=== PATIENT | male | born 1945 | race Asian ===

== ENCOUNTER → 2017-10-24 07:22 | Outpatient (CLI) | payer MEDICARE, MEDICAID, SELFPAY ==
[2017-10-24 09:16] LABS: BUN Creatinine Ratio 24.5 (6-22); Blood Urea Nitrogen 27 mg/dL (9-20); Calcium 9.6 mg/dL (8.4-10.2); Carbon Dioxide 29 mmol/L (22-32); Chloride 100 mmol/L (98-107); Cholesterol 127 mg/dL (140-199); Estimated Glomerular Filt Rate > 60.0 mL/min (>60); Glucose 122 mg/dL (80-110); HDL Cholesterol 39 mg/dL (40-60); HEMOLYSIS < 15 (0-50); LDL Cholesterol Calculated 63 mg/dL (<100); Potassium 4.3 mmol/L (3.4-5.1); Sodium 142 mmol/L (137-145); Triglycerides 125 mg/dL (35-150)
== END ==
PROVIDERS: Family Provider Family Medicine; PCP Family Medicine; Visit Provider Internal Medicine Cardiovascular Disease
DX: E78.5 Hyperlipidemia, unspecified (principal); I48.2 Chronic atrial fibrillation; I10 Essential (primary) hypertension
CPT/HCPCS: 36415; 80048; 80061

== ENCOUNTER → 2017-11-26 15:47 | Outpatient (CLI) | payer MEDICARE, MEDICAID, SELFPAY | PROVIDERS: Family Provider Family Medicine; PCP Family Medicine; Visit Provider Family Medicine | DX: N39.0 Urinary tract infection, site not specified (principal) | CPT/HCPCS: 87086 ==

== ENCOUNTER → 2017-12-07 13:17 | Outpatient (CLI) | payer MEDICARE, MEDICAID, SELFPAY ==
--- NOTE | 2017-12-07 13:20 | DI.US.S_ITS ---
PROCEDURE: US RENAL COMPLETE INDICATIONS: blood in urine TECHNIQUE: Real-time scanning was performed of the kidneys and bladder, with image documentation. COMPARISON: None. FINDINGS: Kidneys: Kidneys are normal in size. Right kidney measures 11.4 cm long; left kidney measures 12.5 cm long. Right renal cortical thickness is 1.9 cm; left renal cortical thickness is 1.9 cm. Renal cortical echotexture is normal. No hydronephrosis or nephrolithiasis. No suspicious solid mass lesions. Bladder: Pre-void bladder volume is 83 mL. Post-void residual is 36 mL. Pre-void images demonstrate no intraluminal masses or stones. On pre-void images, the right ureteral jets are noted with color Doppler interrogation. (Of note, ureteral jets may not be detectable in up to 25% of cases due to insufficient differences in specific gravity between ureteral and bladder urine). Miscellaneous: No free pelvic fluid. IMPRESSION: 1. No apparent nephrolithiasis or hydronephrosis. No mass lesions seen. 2. Nondistended urinary bladder shows no visible mass or stones. Postvoiding residual is recorded. Dictated by: Galo Mike M.D. on 12/07/2017 at 14:38 Approved by: Galo Mike M.D. on 12/07/2017 at 14:40
== END ==
PROVIDERS: PCP Family Medicine; Visit Provider Family Medicine
DX: R31.9 Hematuria, unspecified (principal)
CPT/HCPCS: 76770

== ENCOUNTER → 2017-12-13 07:05 | Outpatient (CLI) | payer MEDICARE, MEDICAID, SELFPAY ==
[2017-12-13 07:26] LABS: Appearance Urine UA CLEAR; Bilirubin Urine UA NEGATIVE (NEGATIVE); Color Urine UA YELLOW; Glucose Urine UA 2+ g/dL (Normal); Ketones Urine UA NEGATIVE (NEGATIVE); Leukocyte Esterase Urine UA NEGATIVE (NEGATIVE); Nitrite Urine UA Negative (Negative); Occult Blood Urine UA 2+ (Negative); Protein Urine UA 1+ (Negative); Urobilinogen Urine UA 0.2 E.U./dL (0.2)
[2017-12-13 07:47] LABS: Bacteria Urine Occasional (0-1); RBC Urine 1-5/HPF (0-5/HPF); WBC Urine 0-1/HPF (0-5/HPF)
[2017-12-13 07:48] LABS: Culture Indicated Urine Cult Not Indicated
== END ==
PROVIDERS: PCP Family Medicine; Visit Provider Family Medicine
DX: R31.9 Hematuria, unspecified (principal)
CPT/HCPCS: 81001

== ENCOUNTER → 2018-02-26 07:33 | Outpatient (CLI) | payer MEDICARE, MEDICAID, SELFPAY ==
[2018-02-26 08:43] LABS: Hemoglobin A1C% w Est Avg Glu 6.3 % (4.0-6.0)
[2018-02-26 08:45] LABS: Add Manual Diff / Slide Review NO; Basophils Percent Auto 0.7 % (0-2); Eosinophils Percent Auto 3.6 % (2-4); Hematocrit 49.9 % (41-53); Lymphocytes Percent Auto 23.5 % (25-40); Mean Corpuscular Hemoglobin 31.1 PG (26-34); Mean Corpuscular Volume 91.6 fL (80-100); Monocytes Percent Auto 6.7 % (3-14); Neutrophils Absolute Auto 4800 /uL (3000-5900); Neutrophils Percent Auto 65.5 % (50-75); Platelet Count 287 X10^3/uL (150-400); Red Blood Cell Count 5.45 X10^6/uL (4.5-5.9); Red Cell Distribution Width 13.2 % (11.6-14.8); White Blood Cell Count 7.3 X10^3/uL (4.5-11.0)
[2018-02-26 09:03] LABS: BUN Creatinine Ratio 26.4 (6-22); Blood Urea Nitrogen 29 mg/dL (9-20); Calcium 9.1 mg/dL (8.4-10.2); Carbon Dioxide 27 mmol/L (22-32); Chloride 103 mmol/L (98-107); Estimated Glomerular Filt Rate > 60.0 mL/min (>60); Glucose 136 mg/dL (80-110); HEMOLYSIS < 15 (0-50); Potassium 4.2 mmol/L (3.4-5.1); Sodium 142 mmol/L (137-145)
== END ==
PROVIDERS: PCP Family Medicine; Visit Provider Family Medicine
DX: I10 Essential (primary) hypertension (principal); D47.3 Essential (hemorrhagic) thrombocythemia; E11.59 Type 2 diabetes mellitus with other circulatory complications
CPT/HCPCS: 36415; 80048; 83036; 85025

== ENCOUNTER → 2018-03-06 11:45 | Outpatient (CLI) | payer MEDICARE, MEDICAID, SELFPAY ==
--- NOTE | 2018-03-06 | DI.CT.S_ITS ---
PROCEDURE: CT ABDOMEN PELVIS WO/W CON INDICATIONS: PAINLESS, MICRO HEMATURIA TECHNIQUE: Optional 5 mm thick noncontrast images acquired from the diaphragm to the symphysis pubis. After the administration of intravenous contrast, 5 mm thick images acquired from the diaphragm to the symphysis pubis after a 10-minute delay. 2 mm thick coronal and sagittal reformats were then performed of the kidneys and ureters. For radiation dose reduction, the following was used: automated exposure control, adjustment of mA and/or kV according to patient size. COMPARISON: [facility], , RENAL COMPLETE, 12/07/2017, 13:35. FINDINGS: Image quality: Excellent. Lung bases: Lung bases are clear of acute opacities. There is a 1.2 cm subpleural nodule in the left lung base (series 4, image 4). There is a 5 mm subpleural nodule in the right lung base (series 4, image 5). Heart size is enlarged. Atherosclerotic calcifications are noted in the visualized coronary vasculature. Urinary system: Both kidneys are normal in size, without hydronephrosis or nephrolithiasis on pre-contrast images. No perinephric fat stranding. There is normal bilateral renal enhancement. Renal calyces appear normal in morphology when filled with contrast. Opacified portions of both ureters demonstrate normal caliber. There are renal calyces and portions of the ureters join opacified bilaterally. No gross mass identified in the unopacified portions of the genitourinary collecting systems, however small urothelial based lesion cannot be completely excluded in the unopacified portions of the genitourinary collecting systems. Bladder wall thickness is normal. No calcified bladder stones. Other solid organs: Liver is normal in size and enhancement. Gallbladder is unremarkable. Biliary system is non dilated. Pancreas enhances normally. Spleen is normal in size and enhancement. No adrenal nodules. Peritoneum and bowel: Bowel loops demonstrate normal wall thickness and caliber. No free fluid or air. Nodes and vessels: No retroperitoneal or mesenteric adenopathy by size criteria. Aorta and inferior vena cava are normal in size. Abdominal wall: No ventral hernias. Pelvis: No pathologic free pelvic fluid. No inguinal hernias or adenopathy. Bones: No suspicious bony lesions. No vertebral body compression fractures. Spine degenerative disc disease and facet arthropathy. IMPRESSION: 1. No renal stone or hydronephrosis. 2. No renal mass. 3. No urothelial lesion identified in the well opacified portions of the genitourinary collecting systems. 4. No urinary bladder masses or stones. 5. Mild cardiomegaly. 6. Atherosclerosis including the visualized coronary vasculature. 7. 1.2 cm left lower lobe and 5 mm right middle lobe pulmonary nodules. Recommend dedicated CT scan of the chest for definitive characterization. Dictated by: Edelmira Mata MD, PhD on 03/06/2018 at 14:14 Approved by: Edelmira Mata MD, PhD on 03/06/2018 at 14:28
== END ==
PROVIDERS: PCP Family Medicine; Visit Provider Urology
DX: R31.9 Hematuria, unspecified (principal)
CPT/HCPCS: 74178; Q9967

== ENCOUNTER → 2018-04-01 07:41 | Outpatient (CLI) | payer MEDICARE, MEDICAID, SELFPAY ==
[2018-04-01 09:17] LABS: BUN Creatinine Ratio 26.4 (6-22); Blood Urea Nitrogen 29 mg/dL (9-20); Estimated Glomerular Filt Rate > 60.0 mL/min (>60)
--- NOTE | 2018-04-01 09:28 | DI.CT.S_ITS ---
PROCEDURE: CT CHEST WO CON INDICATIONS: pulmonary nodules TECHNIQUE: Noncontrast 5 mm thick sections acquired from the pulmonary apices to the posterior costophrenic angles. 7 mm thick coronal and sagittal MIP reformats were then acquired. For radiation dose reduction, the following was used: automated exposure control, adjustment of mA and/or kV according to patient size. COMPARISON: [facility], CT, CT ABDOMEN PELVIS WO/W CON, 03/06/2018, 12:19. FINDINGS: Image quality: Mildly degraded by patient motion during image acquisition. Lungs and pleura: No acute air space opacities. Mild blurring of the lungs bilaterally by patient motion during image acquisition. There is a single 1.2 cm previously identified nodule within the far anterolateral border of the superior segment left lower lobe, best seen on series 2 image 25 and series 4 image 41. The second subpleural nodule previously identified is within the lateral segment right middle lobe seen on series 2 image 34 and also coronal series 4 image 25. No additional pulmonary nodules are seen elsewhere. No pleural effusions or pneumothorax. Central and peripheral airways are patent and normal in caliber. Mediastinum: Heart size is normal. No pericardial effusion. No mediastinal adenopathy by size criteria. Thoracic aorta and central pulmonary arteries are normal in size. Esophagus is normal in caliber. No hiatal hernia. Bones and chest wall: No suspicious bony lesions. No vertebral body compression fractures. No axillary or supraclavicular adenopathy by size criteria. Thyroid gland is not well-seen by this noncontrast technique. Abdomen: Visualized upper abdominal solid organs and bowel loops appear normal in the absence of contrast. IMPRESSION: 2 previously identified pulmonary nodules seen initially 03/06/18 are again seen without global climate change analyst time and without additional nodules elsewhere. The largest nodule measures up to 1.2 cm. These are located in a subpleural position within the lateral border of the lateral segment right middle lobe and the far superior anterior border of the superior segment left lower lobe. The larger of the 2 nodules should be detectable by nuclear medicine PET CT scanning as a benign or presumably malignant mass and therefore followup nuclear medicine PET CT scanning appears warranted. Alternatively, if old comparison CT studies from elsewhere are available for review they should be obtained to establish chronicity of these findings. Dictated by: Alfred Damon M.D. on 04/01/2018 at 9:45 Approved by: Alfred Damon M.D. on 04/01/2018 at 9:53
== END ==
PROVIDERS: PCP Family Medicine; Visit Provider Family Medicine
DX: Z01.812 Encounter for preprocedural laboratory examination (principal); R91.8 Other nonspecific abnormal finding of lung field
CPT/HCPCS: 36415; 71250; 82565; 84520

== ENCOUNTER → 2018-08-29 09:17 | Outpatient (CLI) | payer MEDICARE, MEDICAID, SELFPAY ==
[2018-08-29 10:00] LABS: Add Manual Diff / Slide Review NO; Basophils Absolute Auto 0 /uL (0-100); Basophils Percent Auto 0.6 % (0-2); Eosinophils Absolute Auto 300 /uL (0-450); Eosinophils Percent Auto 3.8 % (2-4); Hematocrit 49.5 % (41-53); Lymphocytes Absolute Auto 1500 /uL (1100-4500); Mean Corpuscular HGB Conc 34.4 % (30-36); Mean Corpuscular Hemoglobin 31.2 PG (26-34); Mean Corpuscular Volume 90.8 fL (80-100); Monocytes Absolute Auto 500 /uL (0-900); Monocytes Percent Auto 6.8 % (3-14); Neutrophils Absolute Auto 4900 /uL (1500-7000); Neutrophils Percent Auto 67.8 % (50-75); Platelet Count 228 X10^3/uL (150-400); Red Blood Cell Count 5.45 X10^6/uL (4.5-5.9); Red Cell Distribution Width 13.5 % (11.6-14.8); White Blood Cell Count 7.3 X10^3/uL (4.5-11.0)
[2018-08-29 10:16] LABS: Alanine Aminotransferase 34 IU/L (21-72); Albumin 4.4 g/dL (3.5-5.0); Albumin Globulin Ratio 1.3 (1.0-2.8); Alkaline Phosphatase 99 U/L (38-126); Aspartate Aminotransferase 21 IU/L (17-59); Bilirubin Total 0.8 mg/dL (0.2-1.3); Blood Urea Nitrogen 31 mg/dL (9-20); Calcium 9.9 mg/dL (8.4-10.2); Carbon Dioxide 28 mmol/L (22-32); Chloride 105 mmol/L (98-107); Estimated Glomerular Filt Rate > 60.0 mL/min (>60); Globulin 3.3 g/dL (1.7-4.1); Glucose 164 mg/dL (80-110); HEMOLYSIS < 15 (0-50); Potassium 4.5 mmol/L (3.4-5.1); Sodium 141 mmol/L (137-145); Total Protein 7.7 g/dL (6.3-8.2)
[2018-08-29 10:18] LABS: B Type Natriuretic Peptide 150 (<100)
== END ==
PROVIDERS: PCP Family Medicine; Visit Provider Family Medicine
DX: E11.59 Type 2 diabetes mellitus with other circulatory complications (principal); E11.8 Type 2 diabetes mellitus with unspecified complications; I87.8 Other specified disorders of veins; I99.9 Unspecified disorder of circulatory system
CPT/HCPCS: 36415; 80053; 83036; 83880; 85025

== ENCOUNTER → 2018-08-30 11:08 | Outpatient (CLI) | payer MEDICARE, MEDICAID, SELFPAY | PROVIDERS: PCP Family Medicine; Visit Provider Family Medicine | DX: I87.312 Chronic venous hypertension (idiopathic) with ulcer of left lower extremity (principal); L97.821 Non-pressure chronic ulcer of other part of left lower leg limited to breakdown of skin; E11.622 Type 2 diabetes mellitus with other skin ulcer | CPT/HCPCS: 97597; 97598; 99203; 99213 ==

== ENCOUNTER → 2018-09-03 14:56 | Outpatient (CLI) | payer MEDICARE, MEDICAID, SELFPAY | PROVIDERS: PCP Family Medicine; Visit Provider Family Medicine | DX: I87.312 Chronic venous hypertension (idiopathic) with ulcer of left lower extremity (principal); L97.822 Non-pressure chronic ulcer of other part of left lower leg with fat layer exposed; E11.622 Type 2 diabetes mellitus with other skin ulcer | CPT/HCPCS: 97597; 97598 ==

== ENCOUNTER → 2018-09-10 14:31 | Outpatient (CLI) | payer MEDICARE, MEDICAID, SELFPAY | PROVIDERS: PCP Family Medicine; Visit Provider Family Medicine | DX: I87.312 Chronic venous hypertension (idiopathic) with ulcer of left lower extremity (principal); L97.822 Non-pressure chronic ulcer of other part of left lower leg with fat layer exposed; E11.622 Type 2 diabetes mellitus with other skin ulcer | CPT/HCPCS: 29581; 99213 ==

== ENCOUNTER → 2018-09-12 09:25 | Outpatient (CLI) | payer MEDICARE, MEDICAID, SELFPAY | PROVIDERS: PCP Family Medicine; Visit Provider Family Medicine | DX: I87.312 Chronic venous hypertension (idiopathic) with ulcer of left lower extremity (principal); L97.822 Non-pressure chronic ulcer of other part of left lower leg with fat layer exposed; E11.622 Type 2 diabetes mellitus with other skin ulcer | CPT/HCPCS: 29581 ==

== ENCOUNTER → 2018-09-17 13:41 | Outpatient (CLI) | payer MEDICARE, MEDICAID, SELFPAY | PROVIDERS: PCP Family Medicine; Visit Provider Family Medicine | DX: I87.312 Chronic venous hypertension (idiopathic) with ulcer of left lower extremity (principal); L97.822 Non-pressure chronic ulcer of other part of left lower leg with fat layer exposed; E11.622 Type 2 diabetes mellitus with other skin ulcer | CPT/HCPCS: 99213; 99214 ==

== ENCOUNTER → 2018-09-24 12:55 | Outpatient (CLI) | payer MEDICARE, MEDICAID, SELFPAY | PROVIDERS: PCP Family Medicine; Visit Provider Family Medicine | DX: L97.822 Non-pressure chronic ulcer of other part of left lower leg with fat layer exposed (principal); I87.312 Chronic venous hypertension (idiopathic) with ulcer of left lower extremity; E11.622 Type 2 diabetes mellitus with other skin ulcer | CPT/HCPCS: 97597; 99213 ==

== ENCOUNTER → 2018-10-01 13:45 | Outpatient (CLI) | payer MEDICARE, MEDICAID, SELFPAY | PROVIDERS: PCP Family Medicine; Visit Provider Family Medicine | DX: I87.312 Chronic venous hypertension (idiopathic) with ulcer of left lower extremity (principal); L97.821 Non-pressure chronic ulcer of other part of left lower leg limited to breakdown of skin; E11.622 Type 2 diabetes mellitus with other skin ulcer | CPT/HCPCS: 97597 ==

== ENCOUNTER → 2018-10-08 08:35 | Outpatient (CLI) | payer MEDICARE, MEDICAID, SELFPAY | PROVIDERS: PCP Family Medicine; Visit Provider Family Medicine | DX: E11.59 Type 2 diabetes mellitus with other circulatory complications (principal); R60.0 Localized edema | CPT/HCPCS: 99212 ==

== ENCOUNTER → 2018-12-16 09:58 | Outpatient (CLI) | payer MEDICARE, MEDICAID, SELFPAY ==
[2018-12-16 10:32] LABS: Hemoglobin A1C% w Est Avg Glu 7.3 % (4.0-6.0)
[2018-12-16 10:49] LABS: B Type Natriuretic Peptide 208 (<100)
[2018-12-16 11:03] LABS: Blood Urea Nitrogen 23 mg/dL (9-20); Carbon Dioxide 25 mmol/L (22-32); Chloride 107 mmol/L (98-107); Estimated Glomerular Filt Rate > 60.0 mL/min (>60); Glucose 106 mg/dL (80-110); HEMOLYSIS < 15 (0-50); Magnesium 2.2 mg/dL (1.6-2.3); Potassium 4.2 mmol/L (3.4-5.1); Sodium 142 mmol/L (137-145)
[2018-12-16 11:35] LABS: TSH w/ Reflex to FT4 2.68 uIU/mL (0.47-4.68)
== END ==
PROVIDERS: PCP Family Medicine; Visit Provider Family Medicine
DX: E11.59 Type 2 diabetes mellitus with other circulatory complications (principal)
CPT/HCPCS: 36415; 80048; 83036; 83735; 83880; 84443

== ENCOUNTER → 2019-02-14 07:02 | Outpatient (CLI) | payer MEDICARE, MEDICAID, SELFPAY ==
[2019-02-14 09:27] LABS: Alanine Aminotransferase 27 IU/L (21-72); Albumin 4.3 g/dL (3.5-5.0); Albumin Globulin Ratio 1.3 (1.0-2.8); Alkaline Phosphatase 114 U/L (38-126); Aspartate Aminotransferase 29 IU/L (17-59); Bilirubin Total 0.7 mg/dL (0.2-1.3); Blood Urea Nitrogen 27 mg/dL (9-20); Calcium 9.8 mg/dL (8.4-10.2); Carbon Dioxide 29 mmol/L (22-32); Chloride 99 mmol/L (98-107); Cholesterol 127 mg/dL (140-199); Estimated Glomerular Filt Rate > 60.0 mL/min (>60); Globulin 3.2 g/dL (1.7-4.1); Glucose 172 mg/dL (80-110); HDL Cholesterol 39 mg/dL (40-60); HEMOLYSIS 16 (0-50); LDL Cholesterol Calculated 57 mg/dL (<100); Potassium 4.8 mmol/L (3.4-5.1); Sodium 140 mmol/L (137-145); Total Protein 7.5 g/dL (6.3-8.2); Triglycerides 154 mg/dL (35-150)
== END ==
PROVIDERS: PCP Family Medicine; Visit Provider Internal Medicine Cardiovascular Disease
DX: E78.5 Hyperlipidemia, unspecified (principal)
CPT/HCPCS: 36415; 80053; 80061

== ENCOUNTER → 2019-03-17 10:21 | Outpatient (CLI) | payer MEDICARE, MEDICAID, SELFPAY ==
[2019-03-17 11:22] LABS: BUN Creatinine Ratio 18.2 (6-22); Blood Urea Nitrogen 20 mg/dL (9-20); Calcium 9.9 mg/dL (8.4-10.2); Carbon Dioxide 31 mmol/L (22-32); Chloride 104 mmol/L (98-107); Estimated Glomerular Filt Rate > 60.0 mL/min (>60); Glucose 135 mg/dL (80-110); HEMOLYSIS < 15 (0-50); Potassium 5.3 mmol/L (3.4-5.1); Sodium 141 mmol/L (137-145)
[2019-03-17 11:33] LABS: Hemoglobin A1C% w Est Avg Glu 7.9 % (4.0-6.0)
== END ==
PROVIDERS: PCP Family Medicine; Visit Provider Family Medicine
DX: E11.59 Type 2 diabetes mellitus with other circulatory complications (principal); I10 Essential (primary) hypertension
CPT/HCPCS: 36415; 80048; 83036

== ENCOUNTER → 2019-07-11 11:03 | Outpatient (CLI) | payer MEDICARE, MEDICAID, SELFPAY ==
[2019-07-11 12:53] LABS: Hemoglobin A1C% w Est Avg Glu 6.9 % (4.0-6.0)
[2019-07-11 13:37] LABS: BUN Creatinine Ratio 25.8 (6-22); Blood Urea Nitrogen 31 mg/dL (9-20); Calcium 10.2 mg/dL (8.4-10.2); Carbon Dioxide 26 mmol/L (22-32); Chloride 106 mmol/L (98-107); Estimated Glomerular Filt Rate 59.7 mL/min (>60); Glucose 82 mg/dL (80-110); HEMOLYSIS < 15 (0-50); Sodium 143 mmol/L (137-145)
== END ==
PROVIDERS: PCP Family Medicine; Referring Provider Family Medicine; Visit Provider Family Medicine
DX: E11.59 Type 2 diabetes mellitus with other circulatory complications (principal)
CPT/HCPCS: 36415; 80048; 83036

== ENCOUNTER → 2019-07-31 08:14 | Outpatient (CLI) | payer MEDICARE, MEDICAID, SELFPAY ==
--- NOTE | 2019-07-31 08:19 | DI.CT.S_ITS ---
PROCEDURE: CT CHEST WO CON INDICATIONS: pulmonary nodules TECHNIQUE: Noncontrast 5 mm thick sections acquired from the pulmonary apices to the posterior costophrenic angles. 1 mm lung window, 5 mm thick coronal and sagittal and 7 mm axial MIP reformats were then acquired. For radiation dose reduction, the following was used: automated exposure control, adjustment of mA and/or kV according to patient size. COMPARISON: [facility], CT, CT CHEST WO CON, 04/01/2018, 9:15. FINDINGS: Image quality: Patient motion artifact limits evaluation. Lungs and pleura: No acute air space opacities. There is peripheral interlobular septal thickening predominantly within the upper and midlungs which may be associated with low lung volumes or early fibrotic changes. An 8mm pulmonary nodule in the right lower lobe is unchanged from the study dated 04/01/18 (series 3/image 1:30). A 1.2 mm nodule within the left lower lobe is unchanged (series 3/image 1:30). 4 mm nodule within the right middle lobe is unchanged (series 3/image 145). There are scattered calcified granulomas. No pleural effusions or pneumothorax. Central and peripheral airways are patent and normal in caliber. Mediastinum: Heart size is normal. No pericardial effusion. There is a 1.7 cm pretracheal lymph node which is unchanged when compared with the CT from 04/01/18. The ascending thoracic aorta measures 4.7 cm in oblique axial diameter and is unchanged from the study dated 04/01/18. Scattered atheromatous calcifications are present throughout the thoracic aorta which is tortuous throughout its course. The central pulmonary arteries are normal in size. Esophagus is normal in caliber. No hiatal hernia. Bones and chest wall: No suspicious bony lesions. No vertebral body compression fractures. No axillary or supraclavicular adenopathy by size criteria. Thyroid gland is unremarkable. Abdomen: Visualized upper abdominal solid organs and bowel loops appear normal in the absence of contrast. IMPRESSION: 1. Pulmonary nodules as above, the largest of which measures 1.2 cm in diameter. These have demonstrated stability since 04/01/18. Follow up scan in March, recommended to ensure 24 months of stability. 2. Stable annuloaortic ectasia. Annual surveillance recommended. Fleischner Society criteria for SOLID lung nodule followup. Nodule size (mm)Low-risk patientHigh-risk patient?4No follow-up neededFollow-up at 12 mo; if no change, no further follow-up>1-3Apnure-eo CT at 12 mo; if no change, no further follow-up needed.Initial follow-up CT at 6-12 mo, then 18-24 mo if no change. >6-8Initial follow-up CT at 6-12 mo, then 18-24 mo if no change. Initial follow-up CT at 3-6 mo, then 9-12 mo and 24 mo if no change. >8Follow-up CT at 3, 9, 24 mo. Or PET and/or biopsy.Same as for low-risk pts. Fleischner Society criteria for SUB-SOLID lung nodule followup. Solitary pure ground-glass nodules5 mm or lessNo followup needed. >5 mm3 mo follow-up CT to confirm persistence. Then annual CT for 3 years. Part-solid nodules3 mo follow-up CT to confirm persistence. If persistent with solid component <5 mm, annual CT for at least 3 years. If solid component is 5 mm or more, biopsy or surgical resection. Consider PET-CT for lesions > 10 mm. Multiple sub-solid nodulesPure ground glass nodules [address] at 2 and 4 years. Pure ground glass nodules >5 mm without dominant lesion. [address] to confirm persistence, then annual followup CT for at least 3 years. Dominant nodule(s) with part-solid or solid component. [address] to confirm persistence. If persistent, consider biopsy or surgical resection, avinash if lesions have >5 mm solid component. Dictated by: Obdulia Hopper M.D. on 07/31/2019 at 16:28 Approved by: Obdulia Hopper M.D. on 07/31/2019 at 16:40
== END ==
PROVIDERS: PCP Family Medicine; Referring Provider Family Medicine; Visit Provider Family Medicine
DX: R91.8 Other nonspecific abnormal finding of lung field (principal); I35.8 Other nonrheumatic aortic valve disorders
CPT/HCPCS: 71250

== ENCOUNTER → 2020-02-10 09:49 | Outpatient (CLI) | payer MEDICARE, MEDICAID, SELFPAY ==
[2020-02-10 11:03] LABS: Hemoglobin A1C% w Est Avg Glu 7.4 % (4.0-6.0)
[2020-02-10 11:22] LABS: Blood Urea Nitrogen 25 mg/dL (9-20); Calcium 9.8 mg/dL (8.4-10.2); Carbon Dioxide 24 mmol/L (22-32); Chloride 104 mmol/L (98-107); Estimated Glomerular Filt Rate > 60.0 mL/min (>60); Glucose 202 mg/dL (80-110); HEMOLYSIS < 15 (0-50); Potassium 4.2 mmol/L (3.4-5.1); Sodium 138 mmol/L (137-145)
== END ==
PROVIDERS: PCP Family Medicine; Referring Provider Family Medicine; Visit Provider Family Medicine
DX: E11.59 Type 2 diabetes mellitus with other circulatory complications (principal); I10 Essential (primary) hypertension
CPT/HCPCS: 36415; 80048; 83036

== ENCOUNTER → 2020-02-25 09:07 | Outpatient (CLI) | payer MEDICARE, MEDICAID, SELFPAY ==
--- NOTE | 2020-02-25 09:09 | DI.RAD.S_ITS ---
PROCEDURE: XR HIP W PEL IF DONE RT 2V INDICATIONS: right hip pain and numbness s/p fall TECHNIQUE: AP pelvis with frogleg lateral view of the right hip. COMPARISON: [facility], CT, CT ABDOMEN PELVIS WO/W CON, 03/06/2018, 12:19. FINDINGS: Bones: No acute fractures or dislocations. Pelvic ring appears intact. No suspicious bony lesions. Soft tissues: The visualized bowel gas pattern is normal. No suspicious soft tissue calcifications. IMPRESSION: No acute osseous abnormality. Mild symmetric degenerative changes in the hips. Dictated by: Chicho Castanon M.D. on 02/25/2020 at 9:55 Approved by: Chicho Castanon M.D. on 02/25/2020 at 9:57
== END ==
PROVIDERS: PCP Family Medicine; Referring Provider Nurse Practitioner; Visit Provider Nurse Practitioner
DX: M25.551 Pain in right hip (principal); R20.0 Anesthesia of skin; Z91.81 History of falling
CPT/HCPCS: 73502

== ENCOUNTER → 2020-04-06 10:24 | Outpatient (CLI) | payer MEDICARE, MEDICAID, SELFPAY ==
--- NOTE | 2020-04-06 10:27 | DI.CT.S_ITS ---
PROCEDURE: CT CHEST WO CON INDICATIONS: nodules TECHNIQUE: Noncontrast 2.0-2.5 mm thick sections acquired from the pulmonary apices to the posterior costophrenic angles. 7 mm thick axial MIP and 5 mm coronal and sagittal reformats were then acquired. A low radiation dose technique was utilized. COMPARISON: [facility], CT, CT CHEST WO CON, 04/01/2018, 9:15. [facility], CT, CT CHEST WO CON, 07/31/2019, 8:14. FINDINGS: Image quality: Diagnostic, given the low radiation dose technique. Lungs and pleura: Nodule #1: 8 mm; RLL; series 3, image 151; ; solid; unchanged. Nodule #2: 10 x 13 mm; LLL; series 3, image 151; solid; unchanged. Nodule #3: 4 mm; RML; series 3, image 175; ; solid; unchanged. There are subpleural septal thickening and pulmonary fibrosis. No pleural effusion or pneumothorax. Mediastinum: Heart size is normal. No pericardial effusion. Mild coronary artery atherosclerosis. There is a 1.9 cm right paratracheal lymph node, unchanged in size. There is ascending aorta activity measuring 1.7 cm. The central pulmonary arteries are normal in size. Esophagus is normal in caliber. No hiatal hernia. Bones and chest wall: No suspicious bony lesions. No vertebral body compression fractures. No axillary or supraclavicular adenopathy by size criteria. Thyroid gland is normal . Abdomen: Visualized upper abdomen solid organs and bowel loops appear normal in the absence of contrast. IMPRESSION: 1. Stable lung nodules since 04/01/2018, suggesting benign etiology. 2. Stable mediastinal lymphadenopathy, most likely reactive. 3. Interstitial lung disease and pulmonary fibrosis. 4. Stable ascending aorta ectasia. Fleischner Society criteria for SOLID lung nodule followup. Nodule size (mm)Low-risk patientHigh-risk patient<6 (single or multiple)No routine followup.Optional CT at 12 months. 6-8 (single or multiple)CT at 6-12 months, then optional CT at 18-24 mo.CT at 6-12 months, then CT at 18-24 months. >8 (single)CT at 3 months, PET-CT, or biopsy. Same as for low-risk pts. >8 (multiple)CT at 3-6 months, then optional CT at 18-24 mo.CT at 3-6 months, then CT at 18-24 months. Fleischner Society criteria for SUB-SOLID lung nodule followup. Solitary pure ground-glass nodules<6 mm (ground glass or part solid)No followup needed. 6 mm or larger (ground glass)CT at 6-12 months to confirm persistence, then CT every 2 years until 5 years.6 mm or larger (part solid)CT at 3-6 months to confirm persistence, then annual CT until 5 years if unchanged and solid component remains <6 mm. Multiple sub-solid nodules<6 mmCT at 3-6 months, then CT consider at 2 & 4 years for high risk patients. [address] at 3-6 months. Subsequent management based on most suspicious lesions. Recommendations do not apply to lung cancer screening, patients with immunosuppression, or patients with known primary cancer. Dictated by: Isaias Browne M.D. on 04/06/2020 at 11:53 Approved by: Isaias Browne M.D. on 04/06/2020 at 14:38
== END ==
PROVIDERS: PCP Family Medicine; Referring Provider Family Medicine; Visit Provider Family Medicine
DX: R91.8 Other nonspecific abnormal finding of lung field (principal); R59.0 Localized enlarged lymph nodes; J84.9 Interstitial pulmonary disease, unspecified; J84.10 Pulmonary fibrosis, unspecified; I77.819 Aortic ectasia, unspecified site
CPT/HCPCS: 71250

== ENCOUNTER → 2020-05-06 07:22 | Outpatient (CLI) | payer MEDICARE, MEDICAID, SELFPAY ==
[2020-05-06 08:00] LABS: Add Manual Diff / Slide Review NO; Basophils Absolute Auto 0 /uL (0-100); Basophils Percent Auto 0.7 % (0-2); Eosinophils Absolute Auto 200 /uL (0-450); Eosinophils Percent Auto 3.3 % (2-4); Hematocrit 49.9 % (41-53); Hemoglobin 16.7 g/dL (13.5-17.5); Lymphocytes Absolute Auto 1700 /uL (1100-4500); Lymphocytes Percent Auto 25.6 % (25-40); Mean Corpuscular HGB Conc 33.4 % (30-36); Mean Corpuscular Hemoglobin 30.2 PG (26-34); Mean Corpuscular Volume 90.4 fL (80-100); Monocytes Absolute Auto 400 /uL (0-900); Monocytes Percent Auto 6.7 % (3-14); Neutrophils Absolute Auto 4200 /uL (1500-7000); Neutrophils Percent Auto 63.7 % (50-75); Platelet Count 229 X10^3/uL (150-400); Red Blood Cell Count 5.52 X10^6/uL (4.5-5.9); White Blood Cell Count 6.5 X10^3/uL (4.5-11.0)
[2020-05-06 08:03] LABS: Hemoglobin A1C% w Est Avg Glu 7.1 % (4.0-6.0)
[2020-05-06 08:13] LABS: Alanine Aminotransferase 19 IU/L (<50); Albumin 4.1 g/dL (3.5-5.0); Albumin Globulin Ratio 1.3 (1.0-2.8); Alkaline Phosphatase 82 U/L (38-126); Aspartate Aminotransferase 23 IU/L (17-59); BUN Creatinine Ratio 26.8 (6-22); Bilirubin Total 0.8 mg/dL (0.2-1.3); Blood Urea Nitrogen 26 mg/dL (9-20); Calcium 9.2 mg/dL (8.4-10.2); Carbon Dioxide 30 mmol/L (22-32); Chloride 105 mmol/L (98-107); Cholesterol 135 mg/dL (140-199); Estimated Glomerular Filt Rate > 60.0 mL/min (>60); Globulin 3.1 g/dL (1.7-4.1); Glucose 157 mg/dL (80-110); HDL Cholesterol 48 mg/dL (40-60); HEMOLYSIS < 15 (0-50); LDL Cholesterol Calculated 60 mg/dL (<100); Potassium 4.3 mmol/L (3.4-5.1); Sodium 140 mmol/L (137-145); Total Protein 7.2 g/dL (6.3-8.2); Triglycerides 137 mg/dL (35-150)
[2020-05-06 08:54] LABS: Creatinine Urine Random 64.7 mg/dL
[2020-05-06 09:37] LABS: Microalbumi Creatinin Ratio Ur 7001.5 ug/mg CR (<30)
== END ==
PROVIDERS: PCP Family Medicine; Referring Provider Family Medicine; Visit Provider Family Medicine
DX: E11.59 Type 2 diabetes mellitus with other circulatory complications (principal); E11.8 Type 2 diabetes mellitus with unspecified complications; I10 Essential (primary) hypertension; I48.20 Chronic atrial fibrillation, unspecified; R91.8 Other nonspecific abnormal finding of lung field; Z79.01 Long term (current) use of anticoagulants
CPT/HCPCS: 36415; 80053; 80061; 82043; 82570; 83036; 85025

== ENCOUNTER → 2020-05-10 11:21 | Outpatient (CLI) | payer MEDICARE, MEDICAID, SELFPAY ==
[2020-05-10 15:16] LABS: Microalbumi Creatinin Ratio Ur 5811.5 ug/mg CR (<30)
== END ==
PROVIDERS: PCP Family Medicine; Visit Provider Family Medicine
DX: E11.59 Type 2 diabetes mellitus with other circulatory complications (principal)
CPT/HCPCS: 82043; 82570

== ENCOUNTER → 2020-11-17 09:32 | Outpatient (CLI) | payer MEDICARE, MEDICAID, SELFPAY | PROVIDERS: PCP Family Medicine; Referring Provider Family Medicine; Visit Provider Family Medicine | DX: E11.59 Type 2 diabetes mellitus with other circulatory complications (principal); I10 Essential (primary) hypertension; Z79.01 Long term (current) use of anticoagulants | CPT/HCPCS: 36415 ==

== ENCOUNTER → 2020-11-18 10:03 | Outpatient (CLI) | payer MEDICARE, MEDICAID, SELFPAY ==
[2020-11-18 11:36] LABS: Add Manual Diff / Slide Review NO; Basophils Absolute Auto 100 /uL (0-100); Basophils Percent Auto 0.7 % (0-2); Eosinophils Absolute Auto 500 /uL (0-450); Eosinophils Percent Auto 6.6 % (2-4); Hematocrit 50.3 % (41-53); Hemoglobin 16.5 g/dL (13.5-17.5); Lymphocytes Absolute Auto 2000 /uL (1100-4500); Lymphocytes Percent Auto 25.3 % (25-40); Mean Corpuscular HGB Conc 32.8 % (30-36); Mean Corpuscular Hemoglobin 29.4 PG (26-34); Mean Corpuscular Volume 89.6 fL (80-100); Monocytes Absolute Auto 500 /uL (0-900); Monocytes Percent Auto 6.2 % (3-14); Neutrophils Absolute Auto 4700 /uL (1500-7000); Neutrophils Percent Auto 61.2 % (50-75); Platelet Count 247 X10^3/uL (150-400); Red Blood Cell Count 5.61 X10^6/uL (4.5-5.9); Red Cell Distribution Width 15.2 % (11.6-14.8); White Blood Cell Count 7.7 X10^3/uL (4.5-11.0)
[2020-11-18 11:45] LABS: Hemoglobin A1C% w Est Avg Glu 7.3 % (4.0-6.0)
[2020-11-18 11:51] LABS: BUN Creatinine Ratio 25.7 (6-22); Blood Urea Nitrogen 26 mg/dL (9-20); Calcium 9.7 mg/dL (8.4-10.2); Carbon Dioxide 29 mmol/L (22-32); Chloride 107 mmol/L (98-107); Estimated Glomerular Filt Rate > 60.0 mL/min (>60); Glucose 94 mg/dL (80-110); HEMOLYSIS 32 (0-50); Sodium 141 mmol/L (137-145)
== END ==
PROVIDERS: PCP Family Medicine; Referring Provider Family Medicine; Visit Provider Family Medicine
DX: I10 Essential (primary) hypertension (principal); E11.22 Type 2 diabetes mellitus with diabetic chronic kidney disease
CPT/HCPCS: 36415; 80048; 83036; 85025

== ENCOUNTER → 2021-04-01 07:12 | Outpatient (CLI) | payer MEDICARE, MEDICAID, SELFPAY ==
[2021-04-01 08:21] LABS: Add Manual Diff / Slide Review NO; Basophils Absolute Auto 100 /uL (0-100); Basophils Percent Auto 0.8 % (0-2); Eosinophils Absolute Auto 300 /uL (0-450); Eosinophils Percent Auto 4.6 % (2-4); Hematocrit 51.9 % (41-53); Hemoglobin 17.7 g/dL (13.5-17.5); Lymphocytes Absolute Auto 2200 /uL (1100-4500); Lymphocytes Percent Auto 30.3 % (25-40); Mean Corpuscular Hemoglobin 30.7 PG (26-34); Mean Corpuscular Volume 90.1 fL (80-100); Monocytes Absolute Auto 500 /uL (0-900); Monocytes Percent Auto 6.2 % (3-14); Neutrophils Absolute Auto 4300 /uL (1500-7000); Neutrophils Percent Auto 58.1 % (50-75); Platelet Count 260 X10^3/uL (150-400); Red Blood Cell Count 5.76 X10^6/uL (4.5-5.9); Red Cell Distribution Width 14.3 % (11.6-14.8); White Blood Cell Count 7.4 X10^3/uL (4.5-11.0)
[2021-04-01 08:41] LABS: Albumin 3.8 g/dL (3.5-5.0); Albumin Globulin Ratio 1.3 (1.0-2.8); Alkaline Phosphatase 104 U/L (38-126); Aspartate Aminotransferase 25 IU/L (17-59); BUN Creatinine Ratio 12.6 (6-22); Bilirubin Total 0.8 mg/dL (0.2-1.3); Blood Urea Nitrogen 15 mg/dL (9-20); Calcium 9.2 mg/dL (8.4-10.2); Carbon Dioxide 27 mmol/L (22-32); Chloride 105 mmol/L (98-107); Cholesterol 196 mg/dL (140-199); Estimated Glomerular Filt Rate 59.9 mL/min (>60); Glucose 157 mg/dL (80-110); HDL Cholesterol 53 mg/dL (40-60); LDL Cholesterol Calculated 111 mg/dL (<100); Sodium 140 mmol/L (137-145); Total Protein 6.8 g/dL (6.3-8.2); Triglycerides 160 mg/dL (35-150)
[2021-04-01 08:43] LABS: Alanine Aminotransferase 19 IU/L (<50); HEMOLYSIS < 15 (0-50); Potassium 4.1 mmol/L (3.4-5.1)
[2021-04-01 08:50] LABS: Hemoglobin A1C% w Est Avg Glu 7.5 % (4.0-6.0)
[2021-04-01 10:46] LABS: Appearance Urine UA CLEAR; Bilirubin Urine UA NEGATIVE (NEGATIVE); Color Urine UA YELLOW; Glucose Urine UA 3+ g/dL (Negative); Ketones Urine UA NEGATIVE (NEGATIVE); Leukocyte Esterase Urine UA NEGATIVE (NEGATIVE); Nitrite Urine UA NEGATIVE (Negative); Occult Blood Urine UA 2+ (Negative); Protein Urine UA 3+ (Negative); Urobilinogen Urine UA 0.2 E.U./dL (0.2)
[2021-04-01 11:02] LABS: Squamous Epithelial Cell Urine 0-1 /HPF (0-5/HPF); WBC Urine 0-1/HPF (0-5/HPF)
[2021-04-01 11:03] LABS: Granular Casts Urine 1-5/LPF; Hyaline Casts Urine 10-30/LPF
[2021-04-01 11:04] LABS: Bacteria Urine Few (2-10); Culture Indicated Urine Cult Not Indicated; RBC Urine 1-5/HPF (0-5/HPF)
== END ==
PROVIDERS: PCP Family Medicine; Referring Provider Family Medicine; Visit Provider Family Medicine
DX: E11.59 Type 2 diabetes mellitus with other circulatory complications (principal); R80.9 Proteinuria, unspecified; Z79.01 Long term (current) use of anticoagulants; I10 Essential (primary) hypertension; E66.09 Other obesity due to excess calories; Z68.33 Body mass index [BMI] 33.0-33.9, adult
CPT/HCPCS: 36415; 80053; 80061; 81001; 83036; 85025

== ENCOUNTER → 2021-04-04 08:14 | Outpatient (CLI) | payer MEDICARE, MEDICAID, SELFPAY ==
[2021-04-04 09:06] LABS: Collection Time Urine 24 Hours; Protein (Total) Urine Random 578 mg/dL (0-12); Total Protein 24 Hour Urine 8670 mg/day (42-225); Total Volume Urine 1500 mL
== END ==
PROVIDERS: PCP Family Medicine; Referring Provider Family Medicine; Visit Provider Family Medicine
DX: R80.9 Proteinuria, unspecified (principal); Z79.01 Long term (current) use of anticoagulants; E11.59 Type 2 diabetes mellitus with other circulatory complications; I10 Essential (primary) hypertension; E66.09 Other obesity due to excess calories; Z68.33 Body mass index [BMI] 33.0-33.9, adult
CPT/HCPCS: 84156

== ENCOUNTER → 2021-06-01 08:23 | Outpatient (CLI) | payer MEDICARE, MEDICAID, SELFPAY ==
[2021-06-01 09:31] LABS: Add Manual Diff / Slide Review NO; Basophils Absolute Auto 0 /uL (0-100); Basophils Percent Auto 0.6 % (0-2); Eosinophils Absolute Auto 200 /uL (0-450); Eosinophils Percent Auto 3.6 % (2-4); Hematocrit 48.6 % (41-53); Hemoglobin 16.7 g/dL (13.5-17.5); Lymphocytes Absolute Auto 1500 /uL (1100-4500); Lymphocytes Percent Auto 25.4 % (25-40); Mean Corpuscular HGB Conc 34.3 % (30-36); Mean Corpuscular Hemoglobin 30.7 PG (26-34); Mean Corpuscular Volume 89.5 fL (80-100); Monocytes Absolute Auto 400 /uL (0-900); Monocytes Percent Auto 5.9 % (3-14); Neutrophils Absolute Auto 3900 /uL (1500-7000); Neutrophils Percent Auto 64.5 % (50-75); Platelet Count 246 X10^3/uL (150-400); Red Blood Cell Count 5.43 X10^6/uL (4.5-5.9); Red Cell Distribution Width 13.4 % (11.6-14.8); White Blood Cell Count 6.1 X10^3/uL (4.5-11.0)
[2021-06-01 09:43] LABS: Hemoglobin A1C% w Est Avg Glu 6.8 % (4.0-6.0)
[2021-06-01 10:02] LABS: Alanine Aminotransferase 14 IU/L (<50); Albumin 3.7 g/dL (3.5-5.0); Albumin Globulin Ratio 1.2 (1.0-2.8); Alkaline Phosphatase 60 U/L (38-126); Aspartate Aminotransferase 23 IU/L (17-59); Bilirubin Total 0.7 mg/dL (0.2-1.3); Blood Urea Nitrogen 23 mg/dL (9-20); Calcium 9.6 mg/dL (8.4-10.2); Carbon Dioxide 25 mmol/L (22-32); Chloride 109 mmol/L (98-107); Creatinine Urine Random 84.7 mg/dL; Estimated Glomerular Filt Rate > 60.0 mL/min (>60); Glucose 102 mg/dL (80-110); HEMOLYSIS < 15 (0-50); Magnesium 2.4 mg/dL (1.6-2.3); Phosphorous 3.9 mg/dL (2.3-3.7); Potassium 3.9 mmol/L (3.4-5.1); Sodium 140 mmol/L (137-145); Total Protein 6.7 g/dL (6.3-8.2)
[2021-06-01 11:31] LABS: Protein (Total) Urine Random 874 mg/dL (0-12); Protein Creatinine Ratio Urine 10.31 GRAM/24H
[2021-06-01 11:32] LABS: Microalbumi Creatinin Ratio Ur 10318.7 ug/mg CR (<30)
[2021-06-02 08:36] LABS: Calcium 9.2 mg/dL (8.6-10.2); Parathyroid Hormone, Intact 42 pg/mL (15-65)
== END ==
PROVIDERS: PCP Family Medicine; Referring Provider Family Medicine; Visit Provider Family Medicine
DX: E11.59 Type 2 diabetes mellitus with other circulatory complications (principal); I10 Essential (primary) hypertension; E66.9 Obesity, unspecified; R80.9 Proteinuria, unspecified; Z79.01 Long term (current) use of anticoagulants
CPT/HCPCS: 36415; 80053; 82043; 82310; 82570; 83036; 83735; 83970; 84100; 84156; 85025

== ENCOUNTER → 2021-07-06 07:02 | Outpatient (CLI) | payer MEDICARE, MEDICAID, SELFPAY ==
[2021-07-06 09:38] LABS: BUN Creatinine Ratio 21.5 (6-22); Blood Urea Nitrogen 31 mg/dL (9-20); Calcium 9.9 mg/dL (8.4-10.2); Carbon Dioxide 28 mmol/L (22-32); Chloride 104 mmol/L (98-107); Cholesterol 132 mg/dL (140-199); Estimated Glomerular Filt Rate 48.1 mL/min (>60); Glucose 129 mg/dL (80-110); HDL Cholesterol 43 mg/dL (40-60); HEMOLYSIS < 15 (0-50); LDL Cholesterol Calculated 67 mg/dL (<100); Potassium 4.2 mmol/L (3.4-5.1); Sodium 139 mmol/L (137-145); Triglycerides 109 mg/dL (35-150)
== END ==
PROVIDERS: PCP Family Medicine; Referring Provider Internal Medicine Cardiovascular Disease; Visit Provider Internal Medicine Cardiovascular Disease
DX: I10 Essential (primary) hypertension (principal)
CPT/HCPCS: 36415; 80048; 80061

== ENCOUNTER → 2021-08-03 09:29 | Outpatient (CLI) | payer MEDICARE, MEDICAID, SELFPAY ==
[2021-08-03 11:04] LABS: Blood Urea Nitrogen 30 mg/dL (9-20); Calcium 9.5 mg/dL (8.4-10.2); Carbon Dioxide 27 mmol/L (22-32); Chloride 105 mmol/L (98-107); Estimated Glomerular Filt Rate 48.3 mL/min (>60); Glucose 175 mg/dL (80-110); HEMOLYSIS < 15 (0-50); Potassium 4.1 mmol/L (3.4-5.1); Sodium 139 mmol/L (137-145)
== END ==
PROVIDERS: Referring Provider Internal Medicine Cardiovascular Disease; Visit Provider Internal Medicine Cardiovascular Disease
DX: I10 Essential (primary) hypertension (principal)
CPT/HCPCS: 36415; 80048

== ENCOUNTER → 2021-08-15 08:13 | Outpatient (CLI) | payer MEDICARE, MEDICAID, SELFPAY ==
--- NOTE | 2021-08-15 | DI.ECHO.S_ITS ---
[facility]---------+ [facility] +---------+ : : [address] [place] : : : : [id number] : : : : Phone: [phone]+ Echocardiogram Report + + :Name: AMARILIS KULKARNI Study Date: 08/15/2021 Height: 66 in : :[facility] ReadingLocation: Weight: 193 lb : : Gender: Male BSA: 2.0 m2 : :: 1945 Age: 76 yrs BP: 174/82 mmHg: :Reason For Study: AORTIC INSUFFICIENCY : :Ordering Physician: BERNADETTE, : :JOE Performed By: Uma Lang : :Referring: JOE FLEMING : + + Interpretation Summary The patient was in atrial fibrillation with heart rates between 44-68 bpm during the exam. Chronic A. fib. The left ventricle is normal in size. Left ventricular ejection fraction is estimated to be 55 +/- 5%. Previously LVEF 60 to 65%. There appears to be hypokinesis of distal septum and distal inferior wall. Mildly worse from the previous study. The right ventricle is normal in size and function. There is mild to moderate aortic regurgitation. Compared to the prior echo study, there has been an increase in the severity of aortic regurgitation. There is mild tricuspid regurgitation. The right ventricular systolic pressure is estimated to be at least 26 mmHg based on an estimated right atrial pressure of 3 mm Hg. The ascending aorta is mild-moderately enlarged. 4.2 cm in diameter. Previously 3.9 cm. Mild atherosclerotic plaque(s) in the aortic arch. There is mild luminal irregularity and echogenicity in the abdominal aorta, suggestive of aortic atherosclerotic disease. Procedure: A two-dimensional transthoracic echocardiogram with color flow and Doppler was performed. The study quality was technically adequate. Comparison is made with the echocardiogram of 09/10/2017. The patient was in atrial fibrillation with heart rates between 44-68 bpm during the exam. Left Ventricle: The left ventricle is normal in size. Proximal septal thickening is noted. There is no echo evidence for significant left ventricular outflow tract obstruction. There is no thrombus. Left ventricular ejection fraction is estimated to be 55 +/- 5%. There appears to be hypokinesis of distal septum and distal inferior wall. Mildly worse from the previous study. E/E' med: 20.1. Right Ventricle: The right ventricle is normal in size and function. Atria: The left atrium is severely dilated. There has been no significant change since the previous study. The right atrium is mildly dilated. There is no Doppler evidence for an interatrial shunt. Mitral Valve: There is mild mitral annular calcification. There is mild mitral regurgitation. Compared to the prior echo study, there has been no change in the severity of mitral regurgitation. Aortic Valve: The aortic valve is trileaflet. The aortic valve opens well. There is discrete nodular thickening of the left coronary cusp. There is mild aortic valve sclerosis. There is no aortic valve stenosis. There is mild to moderate aortic regurgitation. Compared to the prior echo study, there has been an increase in the severity of aortic regurgitation. Tricuspid Valve: The tricuspid valve is normal. There is mild tricuspid regurgitation. The right ventricular systolic pressure is estimated to be at least 26 mmHg based on an estimated right atrial pressure of 3 mm Hg. Pulmonic Valve: The pulmonic valve leaflets are thin and pliable; valve motion is normal. There is trace pulmonic regurgitation. Great Vessels: The aortic root is normal size. There is aortic root sclerosis/calcification. The ascending aorta is mild-moderately enlarged. Mild atherosclerotic plaque(s) in the aortic arch. There is mild luminal irregularity and echogenicity in the abdominal aorta, suggestive of aortic atherosclerotic disease. The IVC is of normal diameter and collapses greater than 50% with a sniff. This suggests a low right atrial pressure of 3 mm Hg. Pericardium/ Pleura There is no pericardial effusion. There is no pleural effusion. MMode/2D Measurements & Calculations LVIDd: 4.8 cm LVOT diam: 2.3 cm LVIDs: 3.3 cm Ao root diam: 4.0 cm FS: 31.8 % asc Aorta Diam: 4.2 cm IVSd: 1.1 cm Ao Arch Diam (Prox Trans): 2.8 cm LVPWd: 0.86 cm LV lim. diameter/BSA (cm/m^2): 2.5 LV sys. diameter/BSA (cm/m^2): 1.7 LA A2 area: 22.0 cm2 RA long axis: 6.2 cm LA A4 area: 26.5 cm2 RA area: 22.3 cm2 LA length (vol): 7.3 cm RA vol: 68.8 ml LA vol: 67.8 ml RA : 34.9 ml/m2 LA vol index: 34.4 ml/m2 IVC diam: 2.0 cm RVD1 (basal): 3.8 cm TAPSE: 1.9 cm Doppler Measurements & Calculations Ao V2 max: 148.0 cm/sec LVOT Max Sylvester: 108.9 cm/sec Ao V2 mean: 97.4 cm/sec LV V1 max P.8 mmHg Ao max P.8 mmHg LV V1 VTI: 26.5 cm Ao mean P.5 mmHg IVANA(I,D): 2.9 cm2 Ao V2 VTI: 36.7 cm IVANA(V,D): 2.9 cm2 sev ratio: 0.72 IVANA indexed to BSA (cm^2/m^2): 1.5 AI P1/2t: 1019 msec AI dec slope: 125.1 cm/sec2 MV E max sylvester: 95.1 cm/sec TR max sylvester: 240.3 cm/sec MV A max sylvester: 1.6 cm/sec TR max P.1 mmHg MV E/A: 59.6 PA V2 max: 70.8 cm/sec Med Peak E' Sylvester: 4.7 cm/sec PA V2 mean: 46.2 cm/sec E/E' med: 20.1 PA mean P.97 mmHg Lat Peak E' Sylvester: 10.3 cm/sec PA pr(Accel): 43.0 mmHg E/E' lat: 9.2 E/e' average: 14.7 MV dec time: 0.21 sec SV(LVOT): 105.8 ml Reading Physician:02:44 PM
== END ==
PROVIDERS: PCP Family Medicine; Referring Provider Internal Medicine Cardiovascular Disease; Visit Provider Internal Medicine Cardiovascular Disease
DX: I08.3 Combined rheumatic disorders of mitral, aortic and tricuspid valves (principal); I77.89 Other specified disorders of arteries and arterioles; I70.0 Atherosclerosis of aorta; Z98.890 Other specified postprocedural states; Z95.828 Presence of other vascular implants and grafts
CPT/HCPCS: 93306

== ENCOUNTER → 2021-09-07 08:10 | Outpatient (CLI) | payer MEDICARE, MEDICAID, SELFPAY ==
--- NOTE | 2021-09-07 | DI.US.S_ITS ---
PROCEDURE: US CAROTID DOPPLER BI INDICATIONS: LEFT CAROTID STENT TECHNIQUE: Color and pulse Doppler interrogation was performed of both carotid systems, with image documentation and velocity measurements. COMPARISON: [facility], , CAROTID ARTERY DOPPLER BILAT, 09/07/2017, 11:28. FINDINGS: Stenosis calculations are based on SRU (Society of Radiologists in Ultrasound) criteria. Right side: Brachial blood pressure: 135/71 mm Hg. Common carotid artery peak systolic velocity: 51 cm/sec. Internal carotid artery peak systolic velocity: 23 cm/sec. Internal carotid artery end diastolic velocity: 6 cm/sec. External carotid artery peak systolic velocity: 54 cm/sec. ICA/CCA peak systolic ratio: 0.4 . Quiroz scale imaging description: Mild plaque Percent internal carotid artery stenosis: Mild, less than 50% . Vertebral artery: Flow direction is antegrade. Left side: Brachial blood pressure: 134/73 mm Hg. Common carotid artery peak systolic velocity: 85 cm/sec. Internal carotid artery peak systolic velocity: 44 cm/sec. Internal carotid artery end diastolic velocity: 13 cm/sec. External carotid artery peak systolic velocity: 35 cm/sec. ICA/CCA peak systolic ratio: 0.5 . Quiroz scale imaging description: Widely patent left carotid stent Percent internal carotid artery stenosis: No stenosis identified.. Vertebral artery: Flow direction is antegrade. IMPRESSION: 1. Mild, less than 50% proximal right internal carotid artery stenosis. 2. Widely patent left internal carotid stent. Dictated by: Pb Figueroa M.D. on 09/07/2021 at 9:43 Approved by: Pb Figueroa M.D. on 09/07/2021 at 9:45
== END ==
PROVIDERS: PCP Family Medicine; Referring Provider Internal Medicine Cardiovascular Disease; Visit Provider Internal Medicine Cardiovascular Disease
DX: I65.21 Occlusion and stenosis of right carotid artery (principal); Z95.828 Presence of other vascular implants and grafts; Z98.890 Other specified postprocedural states
CPT/HCPCS: 93880

== ENCOUNTER → 2021-10-12 09:21 | Outpatient (CLI) | payer MEDICARE, MEDICAID, SELFPAY ==
[2021-10-12 10:28] LABS: Hematocrit 45.7 % (41-53); Hemoglobin 15.9 g/dL (13.5-17.5)
[2021-10-12 10:46] LABS: Creatinine Urine Random 62.9 mg/dL
[2021-10-12 10:55] LABS: BUN Creatinine Ratio 22.5 (6-22); Blood Urea Nitrogen 32 mg/dL (9-20); Calcium 9.5 mg/dL (8.4-10.2); Carbon Dioxide 29 mmol/L (22-32); Chloride 104 mmol/L (98-107); Estimated Glomerular Filt Rate 52 mL/min (>60); Glucose 197 mg/dL (80-110); HEMOLYSIS < 15 (0-50); Potassium 4.5 mmol/L (3.4-5.1); Sodium 140 mmol/L (137-145)
[2021-10-12 11:17] LABS: Microalbumi Creatinin Ratio Ur 4101.7 ug/mg CR (<30)
== END ==
PROVIDERS: PCP Family Medicine; Referring Provider Internal Medicine Nephrology; Visit Provider Internal Medicine Nephrology
DX: N18.31 Chronic kidney disease, stage 3a (principal); E11.22 Type 2 diabetes mellitus with diabetic chronic kidney disease; R80.9 Proteinuria, unspecified
CPT/HCPCS: 36415; 80048; 82043; 82570; 85014; 85018

== ENCOUNTER → 2021-11-25 10:21 | Outpatient (CLI) | payer MEDICARE, MEDICAID, SELFPAY ==
[2021-11-25 12:20] LABS: Add Manual Diff / Slide Review NO; Basophils Absolute Auto 0 /uL (0-100); Basophils Percent Auto 0.8 % (0-2); Eosinophils Absolute Auto 200 /uL (0-450); Eosinophils Percent Auto 4.1 % (2-4); Hematocrit 47.6 % (41-53); Hemoglobin 16.2 g/dL (13.5-17.5); Lymphocytes Absolute Auto 1500 /uL (1100-4500); Lymphocytes Percent Auto 26.3 % (25-40); Mean Corpuscular Hemoglobin 31.2 PG (26-34); Mean Corpuscular Volume 91.8 fL (80-100); Monocytes Absolute Auto 400 /uL (0-900); Monocytes Percent Auto 6.7 % (3-14); Neutrophils Absolute Auto 3400 /uL (1500-7000); Neutrophils Percent Auto 62.1 % (50-75); Platelet Count 249 X10^3/uL (150-400); Red Blood Cell Count 5.19 X10^6/uL (4.5-5.9); Red Cell Distribution Width 13.9 % (11.6-14.8); White Blood Cell Count 5.5 X10^3/uL (4.5-11.0)
[2021-11-25 12:29] LABS: Hemoglobin A1C% w Est Avg Glu 6.4 % (4.0-6.0)
[2021-11-25 12:34] LABS: Alanine Aminotransferase 16 IU/L (<50); Albumin 4.3 g/dL (3.5-5.0); Albumin Globulin Ratio 1.3 (1.0-2.8); Alkaline Phosphatase 79 U/L (38-126); Aspartate Aminotransferase 22 IU/L (17-59); BUN Creatinine Ratio 26.6 (6-22); Bilirubin Total 0.5 mg/dL (0.2-1.3); Blood Urea Nitrogen 38 mg/dL (9-20); Calcium 9.4 mg/dL (8.4-10.2); Carbon Dioxide 27 mmol/L (22-32); Chloride 106 mmol/L (98-107); Estimated Glomerular Filt Rate 51 mL/min (>60); Globulin 3.2 g/dL (1.7-4.1); Glucose 162 mg/dL (80-110); HEMOLYSIS < 15 (0-50); Potassium 4.2 mmol/L (3.4-5.1); Sodium 142 mmol/L (137-145); Total Protein 7.5 g/dL (6.3-8.2)
[2021-11-27 04:08] LABS: Calcium 9.7 mg/dL (8.6-10.2); Parathyroid Hormone, Intact 28 pg/mL (15-65)
== END ==
PROVIDERS: PCP Pediatrics; Referring Provider Pediatrics; Visit Provider Pediatrics
DX: E11.59 Type 2 diabetes mellitus with other circulatory complications (principal); I10 Essential (primary) hypertension; I87.2 Venous insufficiency (chronic) (peripheral)
CPT/HCPCS: 36415; 80053; 82310; 83036; 83970; 84443; 85025

== ENCOUNTER → 2022-04-11 11:10 | Outpatient (CLI) | payer MEDICARE, MEDICAID, SELFPAY ==
[2022-04-11 13:30] LABS: BUN Creatinine Ratio 22.3 (6-22); Blood Urea Nitrogen 31 mg/dL (9-20); Calcium 9.3 mg/dL (8.4-10.2); Carbon Dioxide 22 mmol/L (22-32); Chloride 104 mmol/L (98-107); Estimated Glomerular Filt Rate 53 mL/min (>60); Glucose 154 mg/dL (80-110); HEMOLYSIS < 15 (0-50); Potassium 4.1 mmol/L (3.4-5.1); Sodium 139 mmol/L (137-145)
[2022-04-11 16:11] LABS: Hemoglobin A1C% w Est Avg Glu 7.2 % (4.0-6.0)
== END ==
PROVIDERS: PCP Family Medicine; Referring Provider Family Medicine; Visit Provider Family Medicine
DX: E11.59 Type 2 diabetes mellitus with other circulatory complications (principal)
CPT/HCPCS: 36415; 80048; 83036

== ENCOUNTER → 2022-04-21 10:25 | Outpatient (CLI) | payer MEDICARE, MEDICAID, SELFPAY ==
[2022-04-21 12:37] LABS: Creatinine Urine Random 86.5 mg/dL
[2022-04-21 12:39] LABS: BUN Creatinine Ratio 22.1 (6-22); Blood Urea Nitrogen 31 mg/dL (9-20); Calcium 9.7 mg/dL (8.4-10.2); Carbon Dioxide 24 mmol/L (22-32); Chloride 107 mmol/L (98-107); Estimated Glomerular Filt Rate 53 mL/min (>60); Glucose 123 mg/dL (80-110); HEMOLYSIS < 15 (0-50); Potassium 4.2 mmol/L (3.4-5.1); Sodium 139 mmol/L (137-145)
[2022-04-21 12:40] LABS: Albumin 4.1 g/dL (3.5-5.0); BUN Creatinine Ratio 20.8 (6-22); Blood Urea Nitrogen 30 mg/dL (9-20); Calcium 9.7 mg/dL (8.4-10.2); Carbon Dioxide 23 mmol/L (22-32); Chloride 105 mmol/L (98-107); Estimated Glomerular Filt Rate 51 mL/min (>60); Glucose 123 mg/dL (80-110); HEMOLYSIS < 15 (0-50); Phosphorous 4.4 mg/dL (2.3-3.7); Potassium 4.3 mmol/L (3.4-5.1); Sodium 139 mmol/L (137-145)
[2022-04-21 12:52] LABS: Protein (Total) Urine Random 350 mg/dL (0-12); Protein Creatinine Ratio Urine 4.04 GRAM/24H
[2022-04-22 12:09] LABS: Parathyroid Hormone Int 33 pg/mL (15-65)
== END ==
PROVIDERS: PCP Family Medicine; Referring Provider Internal Medicine Nephrology; Visit Provider Internal Medicine Nephrology
DX: N18.31 Chronic kidney disease, stage 3a (principal); E11.22 Type 2 diabetes mellitus with diabetic chronic kidney disease; I10 Essential (primary) hypertension; R80.9 Proteinuria, unspecified
CPT/HCPCS: 36415; 80048; 80069; 82043; 82570; 83970; 84156

== ENCOUNTER → 2022-06-12 13:36 | Outpatient (CLI) | payer MEDICARE, MEDICAID, SELFPAY ==
--- NOTE | 2022-06-12 | DI.ECHO.S_ITS ---
[facility] +---------+ : : [address] [place] : : : : [id number] : : : : Phone: [phone]+ Echocardiogram Report + + :Name: AMARILIS KULKARNI Study Date: 06/12/2022 Height: 66 in : [facility] 195 [facility] : : Gender: Male BSA: 2.0 m2 : :: 1945 Age: 76 yrs BP: 160/82 mmHg: :Reason For Study: AORTIC INSUFFICIENCY : :Ordering Physician: BERNADETTE, : :JOE Performed By: Uma Lang : :Referring: JOE FLEMING : + + Interpretation Summary 1) Mildly increased left ventricular thickness (concentric) with normal size and normal systolic function (EF 55-60%). 2) Basal inferior wall is akinetic. Basal inferolateral may be hypokinetic (poor endothelial visualization limits assessment) 3) Mildly enlarged right ventricle with low normal function. 4) There is mild to moderate aortic regurgitation. 5) The ascending aorta is mild-moderately enlarged at 4.4cm. 6) Compared to the Echo done 08/15/2021, basal inferolateral wall hypokinesis may be present on this study. Procedure: A two-dimensional transthoracic echocardiogram with color flow and Doppler was performed. The study quality was technically adequate. Comparison is made with the echocardiogram of 08/15/2021. The patient was in sinus bradycardia with heart rates between 50-64 bpm during the exam. Left Ventricle: The left ventricle is normal in size. There is mild concentric left ventricular hypertrophy. The ejection fraction is estimated to be 55-60%. Basal inferior wall is akinetic. Basal inferolateral may be hypokinetic (poor endothelial visualization limits assessment). Diastolic function could not be accurately assessed due to atrial fibrillation. Right Ventricle: The right ventricle is mildly dilated. Right ventricular systolic function is at the lower limits of normal. Atria: The left atrium is moderately dilated. The right atrium is mildly dilated. There is no Doppler evidence for an interatrial shunt. Mitral Valve: There is mild mitral annular calcification. There is mild mitral regurgitation. Aortic Valve: The aortic valve is trileaflet. There is discrete nodular thickening of the non- coronary cusp. There is mild aortic valve sclerosis. There is no aortic valve stenosis. There is mild to moderate aortic regurgitation. Tricuspid Valve: The tricuspid valve is normal in structure and function. There is mild tricuspid regurgitation. The right ventricular systolic pressure is estimated to be at least 37 mmHg based on an estimated right atrial pressure of 3 mm Hg. Pulmonic Valve: The pulmonic valve leaflets are thin and pliable; valve motion is normal. There is no pulmonic valvular regurgitation. Great Vessels: The aortic root is borderline dilated. There is aortic root sclerosis/calcification. The ascending aorta is mild-moderately enlarged. The IVC is of normal diameter and collapses greater than 50% with a sniff. This suggests a low right atrial pressure of 3 mm Hg. Pericardium/ Pleura There is no pericardial effusion. There is no pleural effusion. MMode/2D Measurements & Calculations LVIDd: 4.2 cm LVOT diam: 2.2 cm LVIDs: 3.0 cm Ao root diam: 4.0 cm FS: 28.1 % asc Aorta Diam: 4.4 cm EPSS: 0.99 cm Ao Arch Diam (Prox Trans): 3.5 cm IVSd: 1.3 cm LVPWd: 1.1 cm LV lim. diameter/BSA (cm/m^2): 2.1 LV sys. diameter/BSA (cm/m^2): 1.5 LA A2 area: 31.2 cm2 RA long axis: 6.5 cm LA A4 area: 26.0 cm2 RA area: 24.0 cm2 LA length (vol): 7.2 cm RA vol: 74.8 ml LA vol: 95.4 ml RA : 37.8 ml/m2 LA vol index: 48.2 ml/m2 IVC diam: 2.0 cm RVD1 (basal): 4.1 cm RVD2 (mid): 3.3 cm TAPSE: 1.9 cm Doppler Measurements & Calculations Ao V2 max: 160.8 cm/sec AI P1/2t: 983.3 msec Ao V2 mean: 111.0 cm/sec AI dec slope: 120.5 cm/sec2 Ao max P.5 mmHg Ao mean P.7 mmHg Ao V2 VTI: 31.9 cm MV E max sylvester: 111.8 cm/sec TR max sylvester: 289.4 cm/sec MV A max sylvester: 2.0 cm/sec TR max P.5 mmHg MV E/A: 57.2 PA V2 max: 83.3 cm/sec Med Peak E' Sylvester: 5.2 cm/sec PA V2 mean: 61.8 cm/sec E/E' med: 21.5 PA mean P.7 mmHg Lat Peak E' Sylvester: 11.6 cm/sec PA pr(Accel): 27.6 mmHg E/E' lat: 9.6 E/e' average: 15.6 MV dec time: 0.20 sec Reading Physician:03:22 PM
== END ==
PROVIDERS: PCP Family Medicine; Referring Provider Internal Medicine Cardiovascular Disease; Visit Provider Internal Medicine Cardiovascular Disease
DX: I08.3 Combined rheumatic disorders of mitral, aortic and tricuspid valves (principal); I77.810 Thoracic aortic ectasia; I77.89 Other specified disorders of arteries and arterioles
CPT/HCPCS: 93306

== ENCOUNTER → 2022-07-05 10:33 | Outpatient (CLI) | payer MEDICARE, MEDICAID, SELFPAY ==
[2022-07-05 11:20] LABS: Hemoglobin A1C% w Est Avg Glu 7.2 % (4.0-6.0)
== END ==
PROVIDERS: PCP Family Medicine; Referring Provider Family Medicine; Visit Provider Family Medicine
DX: E11.59 Type 2 diabetes mellitus with other circulatory complications (principal)
CPT/HCPCS: 36415; 83036

== ENCOUNTER → 2022-10-02 10:37 | Outpatient (CLI) | payer MEDICARE, MEDICAID, SELFPAY ==
[2022-10-02 11:28] LABS: BUN Creatinine Ratio 26.4 (6-22); Blood Urea Nitrogen 34 mg/dL (9-20); Calcium 9.3 mg/dL (8.4-10.2); Carbon Dioxide 24 mmol/L (22-32); Chloride 106 mmol/L (98-107); Estimated Glomerular Filt Rate 58 mL/min (>60); Glucose 154 mg/dL (80-110); HEMOLYSIS 39 (0-50); Potassium 4.9 mmol/L (3.4-5.1); Sodium 138 mmol/L (137-145)
[2022-10-03 08:35] LABS: Labcorp Hemoglobin (Hb) A1c 7.9 % (4.8-5.6)
== END ==
PROVIDERS: PCP Family Medicine; Referring Provider Family Medicine; Visit Provider Family Medicine
DX: I10 Essential (primary) hypertension (principal); N18.30 Chronic kidney disease, stage 3 unspecified; E11.59 Type 2 diabetes mellitus with other circulatory complications
CPT/HCPCS: 36415; 80048; 83036

== ENCOUNTER → 2022-10-25 10:10 | Outpatient (CLI) | payer MEDICARE, MEDICAID, SELFPAY ==
[2022-10-25 12:25] LABS: Hematocrit 43.8 % (41-53); Hemoglobin 14.9 g/dL (13.5-17.5)
[2022-10-25 12:51] LABS: BUN Creatinine Ratio 21.3 (6-22); Blood Urea Nitrogen 29 mg/dL (9-20); Calcium 9.2 mg/dL (8.4-10.2); Carbon Dioxide 25 mmol/L (22-32); Chloride 104 mmol/L (98-107); Estimated Glomerular Filt Rate 54 mL/min (>60); Glucose 185 mg/dL (80-110); HEMOLYSIS < 15 (0-50); Potassium 4.2 mmol/L (3.4-5.1); Sodium 139 mmol/L (137-145)
[2022-10-25 15:18] LABS: Creatinine Urine Random 75.9 mg/dL
[2022-10-25 15:54] LABS: Microalbumin Urine Random 113.4 mg/dL (0-1.6); Protein (Total) Urine Random 260 mg/dL (0-12); Protein Creatinine Ratio Urine 3.42 GRAM/24H
[2022-10-26 08:23] LABS: Parathyroid Hormone Int 46 pg/mL (15-65)
== END ==
PROVIDERS: PCP Family Medicine; Referring Provider Internal Medicine Nephrology; Visit Provider Internal Medicine Nephrology
DX: E11.22 Type 2 diabetes mellitus with diabetic chronic kidney disease (principal); N18.31 Chronic kidney disease, stage 3a; R80.9 Proteinuria, unspecified; I10 Essential (primary) hypertension
CPT/HCPCS: 36415; 80048; 82043; 82570; 83970; 84156; 85014; 85018

== ENCOUNTER → 2023-01-09 10:44 | Outpatient (CLI) | payer MEDICARE, MEDICAID, SELFPAY ==
[2023-01-09 12:37] LABS: Alanine Aminotransferase 18 IU/L (<50); Albumin 3.7 g/dL (3.5-5.0); Albumin Globulin Ratio 1.1 (1.0-2.8); Alkaline Phosphatase 168 U/L (38-126); Aspartate Aminotransferase 22 IU/L (17-59); BUN Creatinine Ratio 18.4 (6-22); Bilirubin Total 0.8 mg/dL (0.2-1.3); Blood Urea Nitrogen 25 mg/dL (9-20); Calcium 9.4 mg/dL (8.4-10.2); Carbon Dioxide 28 mmol/L (22-32); Chloride 104 mmol/L (98-107); Cholesterol 98 mg/dL (140-199); Estimated Glomerular Filt Rate 54 mL/min (>60); Globulin 3.4 g/dL (1.7-4.1); Glucose 148 mg/dL (80-110); HDL Cholesterol 35 mg/dL (40-60); HEMOLYSIS < 15 (0-50); LDL Cholesterol Calculated 37 mg/dL (<100); Potassium 4.1 mmol/L (3.4-5.1); Sodium 141 mmol/L (137-145); Total Protein 7.1 g/dL (6.3-8.2); Triglycerides 131 mg/dL (35-150)
== END ==
PROVIDERS: PCP Family Medicine; Referring Provider Family Medicine; Visit Provider Family Medicine
DX: I10 Essential (primary) hypertension (principal); E11.59 Type 2 diabetes mellitus with other circulatory complications; N18.30 Chronic kidney disease, stage 3 unspecified; R80.9 Proteinuria, unspecified
CPT/HCPCS: 36415; 80053; 80061

== ENCOUNTER → 2023-04-09 11:07 | Outpatient (CLI) | payer MEDICARE, MEDICAID, SELFPAY ==
--- NOTE | 2023-04-09 11:09 | DI.RAD.S_ITS ---
PROCEDURE: XR HUMERUS LT 2V INDICATIONS: Left humerus pain TECHNIQUE: 2 views of the humerus were acquired. COMPARISON: None. FINDINGS: Bones: No fractures or dislocations. No suspicious bony lesions. Soft tissues: No suspicious soft tissue calcifications. IMPRESSION: No acute bony abnormality. Dictated by: Boom Doyle M.D. on 04/09/2023 at 12:12 Approved by: Boom Doyle M.D. on 04/09/2023 at 12:13
== END ==
PROVIDERS: PCP Family Medicine; Referring Provider Nurse Practitioner Family; Visit Provider Nurse Practitioner Family
DX: M89.8X2 Other specified disorders of bone, upper arm (principal)
CPT/HCPCS: 73060

== ENCOUNTER → 2023-04-25 10:30 | Outpatient (CLI) | payer MEDICARE, MEDICAID, SELFPAY ==
[2023-04-25 11:33] LABS: Hematocrit 48.5 % (41-53); Hemoglobin 16.7 g/dL (13.5-17.5)
[2023-04-25 11:52] LABS: Blood Urea Nitrogen 30 mg/dL (9-20); Calcium 9.5 mg/dL (8.4-10.2); Carbon Dioxide 22 mmol/L (22-32); Chloride 107 mmol/L (98-107); Estimated Glomerular Filt Rate > 60 mL/min (>60); Glucose 134 mg/dL (80-110); HEMOLYSIS < 15 (0-50); Potassium 4.4 mmol/L (3.4-5.1); Sodium 137 mmol/L (137-145)
[2023-04-25 12:22] LABS: TSH w/ Reflex to FT4 2.58 uIU/mL (0.47-4.68)
[2023-04-25 12:42] LABS: Protein (Total) Urine Random 263 mg/dL (0-12)
[2023-04-25 12:43] LABS: Creatinine Urine Random 67.5 mg/dL; Protein Creatinine Ratio Urine 3.89 GRAM/24H
[2023-04-27 09:20] LABS: Parathyroid Hormone Int 45 pg/mL (15-65)
== END ==
PROVIDERS: PCP Family Medicine; Referring Provider Internal Medicine Nephrology; Visit Provider Internal Medicine Nephrology
DX: I10 Essential (primary) hypertension (principal); R80.9 Proteinuria, unspecified; E11.22 Type 2 diabetes mellitus with diabetic chronic kidney disease; N18.31 Chronic kidney disease, stage 3a; N18.30 Chronic kidney disease, stage 3 unspecified; E11.59 Type 2 diabetes mellitus with other circulatory complications; R53.82 Chronic fatigue, unspecified
CPT/HCPCS: 36415; 80048; 82043; 82570; 83970; 84156; 84443; 85014; 85018

== ENCOUNTER → 2023-11-09 07:54 | Outpatient (CLI) | payer MEDICARE, MEDICAID, SELFPAY ==
--- NOTE | 2023-11-09 07:56 | DI.US.S_ITS ---
PROCEDURE: US CAROTID DOPPLER BI INDICATIONS: NONRHEUM AORTIC VALVE INSUFF/HX CAROTID STENT TECHNIQUE: Color and pulse Doppler interrogation was performed of both carotid systems, with image documentation and velocity measurements. COMPARISON: [facility], US, US CAROTID DOPPLER BI, 09/07/2021, 8:31. FINDINGS: Stenosis calculations are based on SRU (Society of Radiologists in Ultrasound) criteria. Right side: Brachial blood pressure: 150/82 mm Hg. Common carotid artery peak systolic velocity: 50 cm/sec. Internal carotid artery peak systolic velocity: 55 cm/sec. Internal carotid artery end diastolic velocity: 15 cm/sec. External carotid artery peak systolic velocity: 35 cm/sec. ICA/CCA peak systolic ratio: 1.1. Quiroz scale imaging description: Atheromatous plaque is present at the carotid bifurcation Percent internal carotid artery stenosis: Less than 50% stenosis. Vertebral artery: Flow direction is antegrade. Left side: Brachial blood pressure: 148/82 mm Hg. Common carotid artery peak systolic velocity: 60 cm/sec. Internal carotid artery peak systolic velocity: 51 cm/sec. Internal carotid artery end diastolic velocity: 17 cm/sec. External carotid artery peak systolic velocity: 35 cm/sec. ICA/CCA peak systolic ratio: 0.9. Quiroz scale imaging description: The left ICA stent is patent. Percent internal carotid artery stenosis: Less than 50% stenosis. Vertebral artery: Flow direction is antegrade. IMPRESSION: Less than 50% stenosis of the bilateral internal carotid arteries. Dictated by: Obdulia Hopper M.D. on 11/09/2023 at 11:50 Approved by: Obdulia Hopper M.D. on 11/09/2023 at 11:52
--- NOTE | 2023-11-09 07:56 | DI.ECHO.S_ITS ---
[facility]---------+ [facility] : : [address] : : [place] : : [id number] : : Phone: [phone] Echocardiogram Report + + :Name: AMARILIS KULKARNI Study Date: 11/09/2023 Height: 64 in : :Hospital ReadingLocation: Weight: 185 lb : : Gender: Male BSA: 1.9 m2 : :: 1945 Age: 78 yrs BP: 195/100 mmHg: :Reason For Study: AORTIC VALVE INSUFFICIENCY : :Ordering Physician: BERNADETTE, : :JOE Performed By: Anshu Chaney : :Referring: JOE FLEMING : + + Interpretation Summary The left ventricle is normal in size. The left ventricular ejection fraction is normal. LVEF 55 to 60%. No significant change from the previous study. The right ventricle is grossly normal size. Right ventricular systolic function is at the lower limits of normal. There is mild to moderate aortic regurgitation. Compared to the prior echo study, there has been no change in the severity of aortic regurgitation. There is mild tricuspid regurgitation. The right ventricular systolic pressure is estimated to be at least 32.8 mmHg based on an estimated right atrial pressure of 8 mm Hg. Previously 37 mmHg. The ascending aorta is mild-moderately enlarged. 4.2 cm in diameter. Previously 4.4 cm. Mild atherosclerotic plaque(s) in the aortic arch. BP: 195/100 mmHg Procedure: A two-dimensional transthoracic echocardiogram with color flow and Doppler was performed. The study quality was technically adequate. Comparison is made with the echocardiogram of 06/12/2022. The heart rate ranged between 47-68 bpm during the study. The patient was in atrial fibrillation with heart rates between 47-68 bpm during the exam. Left Ventricle: The left ventricle is normal in size. Left ventricular wall thickness is mildly increased. There is no thrombus. The ejection fraction is estimated to be 55-60%. The left ventricular ejection fraction is normal. There has been no significant change since the previous exam. There is basal inferior wall hypokinesis. Compared to the prior exam, the left ventricular wall motion has not changed. Diastolic function could not be accurately assessed due to atrial fibrillation. E/E' med: 16.6. Right Ventricle: The right ventricle is not well visualized. The right ventricle is grossly normal size. Right ventricular systolic function is at the lower limits of normal. There has been no significant change since the previous study. Atria: The left atrium is mildly dilated. The left atrium has mildly decreased in size since the prior echo exam. The right atrium is mildly dilated. The interatrial septum grossly appears intact with no obvious evidence for an atrial septal defect. Mitral Valve: There is mild mitral annular calcification. There is no mitral valve stenosis. There is mild mitral regurgitation. Compared to the prior echo study, there has been no change in the severity of mitral regurgitation. Aortic Valve: The aortic valve is trileaflet. There is mild aortic valve sclerosis. There is no aortic valve stenosis. There is mild to moderate aortic regurgitation. Compared to the prior echo study, there has been no change in the severity of aortic regurgitation. Tricuspid Valve: The tricuspid valve is not well visualized, but is grossly normal. There is no tricuspid stenosis. There is mild tricuspid regurgitation. The right ventricular systolic pressure is estimated to be at least 32.8 mmHg based on an estimated right atrial pressure of 8 mm Hg. Pulmonic Valve: The pulmonic valve is not well seen, but is grossly normal. There is no pulmonic valvular stenosis. There is trace pulmonic regurgitation. Great Vessels: There is aortic root sclerosis/calcification. The aortic root is normal size. The ascending aorta is mild-moderately enlarged. Mild atherosclerotic plaque(s) in the aortic arch. The IVC is dilated (diameter is greater than 2.1 cm) yet it collapses greater than 50% with a sniff. This suggests a right atrial pressure of 8 mm Hg. Pericardium/ Pleura There is no pericardial effusion. There is no pleural effusion. MMode/2D Measurements & Calculations LVIDd: 4.4 cm LVOT diam: 2.2 cm LVIDs: 3.3 cm Ao root diam: 4.1 cm FS: 25.6 % asc Aorta Diam: 4.2 cm IVSd: 1.2 cm Ao Arch Diam (Prox Trans): 3.3 cm LVPWd: 1.2 cm LV lim. diameter/BSA (cm/m^2): 2.3 LV sys. diameter/BSA (cm/m^2): 1.7 LA A4 area: 26.7 cm2 RA long axis: 6.4 cm LA length (vol): 6.4 cm RA area: 17.2 cm2 RA vol: 39.2 ml RA : 20.7 ml/m2 IVC diam: 2.3 cm TAPSE: 1.1 cm LA A2C-A/L_phl: 28.0 cm2 Doppler Measurements & Calculations Ao V2 max: 115.5 cm/sec LVOT Max Sylvester: 69.0 cm/sec Ao V2 mean: 83.3 cm/sec LV V1 max P.9 mmHg Ao max P.4 mmHg LV V1 VTI: 17.6 cm Ao mean P.1 mmHg IVANA(I,D): 2.8 cm2 Ao V2 VTI: 25.1 cm IVANA(V,D): 2.4 cm2 sev ratio: 0.70 IVANA indexed to BSA (cm^2/m^2): 1.5 AI P1/2t: 796.6 msec AI dec slope: 165.4 cm/sec2 MV E max sylvester: 92.1 cm/sec TR max sylvester: 249.0 cm/sec MV A max sylvester: 15.9 cm/sec TR max P.8 mmHg MV E/A: 5.8 PA V2 max: 73.6 cm/sec Med Peak E' Sylvester: 5.6 cm/sec PA V2 mean: 52.3 cm/sec E/E' med: 16.6 PA mean P.2 mmHg Lat Peak E' Sylvester: 12.0 cm/sec PA pr(Accel): 41.3 mmHg E/E' lat: 7.7 E/e' average: 12.1 MV dec time: 0.17 sec SV(LVOT): 69.5 ml Reading Physician:01:12 PM
== END ==
LOC: ECHO 07:55
PROVIDERS: PCP Family Medicine; Referring Provider Internal Medicine Cardiovascular Disease; Visit Provider Internal Medicine Cardiovascular Disease
DX: I65.23 Occlusion and stenosis of bilateral carotid arteries (principal); I08.3 Combined rheumatic disorders of mitral, aortic and tricuspid valves; I77.810 Thoracic aortic ectasia; I77.89 Other specified disorders of arteries and arterioles; I70.0 Atherosclerosis of aorta; Z98.890 Other specified postprocedural states; Z95.828 Presence of other vascular implants and grafts
CPT/HCPCS: 93306; 93880

== ENCOUNTER → 2023-11-14 07:02 | Outpatient (CLI) | payer MEDICARE, MEDICAID, SELFPAY ==
[2023-11-14 07:56] LABS: Add Manual Diff / Slide Review NO; Basophils Absolute Auto 0 /uL (0-100); Basophils Percent Auto 0.6 % (0-2); Eosinophils Absolute Auto 400 /uL (0-450); Eosinophils Percent Auto 6.3 % (2-4); Hematocrit 50.9 % (41-53); Hemoglobin 17.5 g/dL (13.5-17.5); Lymphocytes Absolute Auto 2100 /uL (1100-4500); Mean Corpuscular HGB Conc 34.4 % (30-36); Mean Corpuscular Hemoglobin 31.4 PG (26-34); Mean Corpuscular Volume 91.2 fL (80-100); Monocytes Absolute Auto 500 /uL (0-900); Monocytes Percent Auto 7.1 % (3-14); Neutrophils Absolute Auto 3900 /uL (1500-7000); Platelet Count 235 X10^3/uL (150-400); Red Blood Cell Count 5.58 X10^6/uL (4.5-5.9); Red Cell Distribution Width 14.3 % (11.6-14.8); White Blood Cell Count 6.9 X10^3/uL (4.5-11.0)
[2023-11-14 08:22] LABS: Alanine Aminotransferase 24 IU/L (<50); Albumin 3.6 g/dL (3.5-5.0); Alkaline Phosphatase 128 U/L (38-126); Aspartate Aminotransferase 22 IU/L (17-59); BUN Creatinine Ratio 20.4 (6-22); Bilirubin Total 1.2 mg/dL (0.2-1.3); Blood Urea Nitrogen 29 mg/dL (9-20); Calcium 9.2 mg/dL (8.4-10.2); Carbon Dioxide 25 mmol/L (22-32); Chloride 111 mmol/L (98-107); Cholesterol 123 mg/dL (140-199); Estimated Glomerular Filt Rate 51 mL/min (>60); Globulin 3.5 g/dL (1.7-4.1); Glucose 140 mg/dL (80-110); HDL Cholesterol 43 mg/dL (40-60); HEMOLYSIS < 15 (0-50); LDL Cholesterol Calculated 46 mg/dL (<100); Phosphorous 3.9 mg/dL (2.3-3.7); Potassium 4.4 mmol/L (3.4-5.1); Sodium 140 mmol/L (137-145); Total Protein 7.1 g/dL (6.3-8.2); Triglycerides 168 mg/dL (35-150)
[2023-11-14 08:36] LABS: Vitamin D 25 Hydroxy (D3) 19.1 ng/mL (30.0-100.0)
[2023-11-14 08:39] LABS: Creatinine Urine Random 96.85 mg/dL
[2023-11-14 09:07] LABS: Microalbumin Urine Random > 19.0 mg/dL (0-1.6); Protein (Total) Urine Random 420 mg/dL (0-12); Protein Creatinine Ratio Urine 4.33 GRAM/24H
[2023-11-15 12:09] LABS: Parathyroid Hormone Int 48 pg/mL (15-65)
== END ==
PROVIDERS: Internal Medicine Cardiovascular Disease; PCP Family Medicine; Referring Provider Internal Medicine Nephrology; Visit Provider Internal Medicine Nephrology
DX: E78.5 Hyperlipidemia, unspecified (principal); N18.31 Chronic kidney disease, stage 3a; I12.9 Hypertensive chronic kidney disease with stage 1 through stage 4 chronic kidney disease, or unspecified chronic kidney disease; E11.22 Type 2 diabetes mellitus with diabetic chronic kidney disease; R80.9 Proteinuria, unspecified
CPT/HCPCS: 36415; 80053; 80061; 80069; 82043; 82306; 82570; 83970; 84156; 85025

== ENCOUNTER 2024-02-11 16:41 | Emergency (ER) | payer MEDICARE, MEDICAID, SELFPAY ==
[2024-02-11] VITALS (13 sets, daily range): BP systolic 183–227; BP diastolic 84–114; PULSE 60–80; RESP 18–30; TEMP 36.8; O2SAT 91–95
--- NOTE | 2024-02-11 16:58 | EKG_ITS ---
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
--- NOTE | 2024-02-11 16:58 | DI.RAD.S_ITS ---
PROCEDURE: XR CHEST 1V INDICATIONS: Shortness of breath TECHNIQUE: One view of the chest was acquired. COMPARISON: None. FINDINGS: Surgical changes and devices: None. Lungs and pleura: Prominent interstitial markings. No pleural effusions or pneumothorax. Mediastinum: Mediastinal contours appear normal. Heart size is enlarged. Bones and chest wall: No suspicious bony lesions. Overlying soft tissues appear unremarkable. IMPRESSION: Cardiomegaly and prominent interstitial markings raising concern for pulmonary edema/CHF. Recommend clinical correlation. Dictated by: Castro Barrientos M.D. on 02/11/2024 at 17:28 Approved by: Castro Barrientos M.D. on 02/11/2024 at 17:29
[2024-02-11 17:27] LABS: Add Manual Diff / Slide Review NO; Basophils Absolute Auto 0 /uL (0-100); Basophils Percent Auto 0.6 % (0-2); Eosinophils Absolute Auto 300 /uL (0-450); Eosinophils Percent Auto 4.5 % (2-4); Hematocrit 50.2 % (41-53); Hemoglobin 17.1 g/dL (13.5-17.5); Lymphocytes Absolute Auto 1900 /uL (1100-4500); Lymphocytes Percent Auto 24.9 % (25-40); Mean Corpuscular HGB Conc 34.1 % (30-36); Mean Corpuscular Hemoglobin 31.4 PG (26-34); Mean Corpuscular Volume 92.1 fL (80-100); Monocytes Absolute Auto 600 /uL (0-900); Monocytes Percent Auto 7.3 % (3-14); Neutrophils Absolute Auto 4800 /uL (1500-7000); Neutrophils Percent Auto 62.7 % (50-75); Platelet Count 250 X10^3/uL (150-400); Red Blood Cell Count 5.45 X10^6/uL (4.5-5.9); Red Cell Distribution Width 13.8 % (11.6-14.8); White Blood Cell Count 7.6 X10^3/uL (4.5-11.0)
[2024-02-11 17:37] LABS: INR 1.2 (0.9-1.3); Prothrombin Time 13.5 SECONDS (9.4-12.5)
[2024-02-11 17:40] LABS: Alanine Aminotransferase 19 IU/L (<50); Albumin 3.9 g/dL (3.5-5.0); Alkaline Phosphatase 190 U/L (38-126); Aspartate Aminotransferase 24 IU/L (17-59); BUN Creatinine Ratio 17.1 (6-22); Bilirubin Total 1.1 mg/dL (0.2-1.3); Blood Urea Nitrogen 22 mg/dL (9-20); Calcium 9.4 mg/dL (8.4-10.2); Carbon Dioxide 25 mmol/L (22-32); Chloride 104 mmol/L (98-107); Estimated Glomerular Filt Rate 57 mL/min (>60); Globulin 3.8 g/dL (1.7-4.1); Glucose 179 mg/dL (80-110); HEMOLYSIS < 15 (0-50); Potassium 3.9 mmol/L (3.4-5.1); Sodium 139 mmol/L (137-145); Total Protein 7.7 g/dL (6.3-8.2)
[2024-02-11 17:41] LABS: Lactate (Lactic Acid) 1.9 mmol/L (0.7-2.1)
[2024-02-11 17:52] LABS: NT-proBNP (BNP-Adult 18+) 4030 pg/mL (<450); Troponin I 0.026 ng/mL (0.01-0.034)
--- NOTE | 2024-02-11 18:01 | ED_ITS ---
HPI - SOB/Dyspnea General Chief Complaint: Shortness of Breath/Dyspnea Stated Complaint: WIC; Wound on R Leg, Swelling, Water Retention Time Seen by Provider: 02/11/24 18:00 History of Present Illness HPI Narrative: (Mandarin speaking, translation by daughter at bedside) 78-year-old male resident of [facility], with history of atrial fibrillation on chronic Eliquis anticoagulation, history of congestive heart failure, kidney problems not on dialysis, hypertension, having missed morning doses of medication, noted to have increasing lower extremity swelling and some shortness of breath. He presented to walk-in clinic who felt he was fluid overloaded, referred here for further evaluation. Denies recent fever cough. Daughter at bedside historian, patient is Mandarin speaking, she believes patient has missed morning medications, but usually has assistance getting his evening afternoon medications. Denies alcohol use. Denies chest pain. PCP Dr Fisher, also followed by local cardiology Dr Elias Related Data Home Medications Medication Instructions Recorded Confirmed milk thistle 150 mg capsule 150 mg PO DAILY 02/18/18 02/11/24 atorvastatin 40 mg tablet 40 mg PO BEDTIME 11/25/21 02/11/24 spironolactone 25 mg tablet 25 mg PO DAILY 01/09/23 02/11/24 amlodipine 10 mg tablet 5 mg PO DAILY 08/08/23 02/11/24 Previous Rx's Medication Instructions Recorded aspirin 81 mg tablet,delayed 81 mg PO QDAY #90 tabs 06/19/17 release Disabled Parking Permit #1 ea 02/24/22 fenofibrate micronized 134 mg See Rx Instructions .Route 04/18/22 capsule .COMPLEX #90 caps triamcinolone acetonide 0.1 % 1 applic topical BID PRN rash #30 07/05/22 topical cream grams dapagliflozin propanediol 10 mg 10 mg PO DAILY #90 tabs 07/13/23 tablet glimepiride 4 mg tablet 8 mg (2 x 4 mg) PO QDAY #180 tabs 07/23/23 sitagliptin phosphate 50 See Rx Instructions .Route 07/23/23 mg-metformin 500 mg tablet .COMPLEX #180 tabs (Janjae) lisinopril 40 mg tablet 40 mg PO QPM #90 tabs 09/05/23 atenolol 50 mg tablet 50 mg PO DAILY #90 tabs 01/04/24 Eliquis 5 mg tablet (apixaban) 5 mg PO BID #180 tabs 01/08/24 Allergies Allergy/AdvReac Type Severity Reaction Status Date / Time No Known Drug Allergies Allergy Unverified 02/11/24 16:36 Review of Systems Review of Systems Narrative: see HPI Patient History Medical History 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 Mother No problems noted. Social History Smoking Status: Former smoker Tobacco: How many years used: 20 alcohol intake: former substance use type: does not use Smoking Status: Former smoker alcohol intake frequency: other Substance Use Type: does not use Exam Narrative Exam Narrative: GENERAL: Well-developed patient, in mild distress. HEAD: Atraumatic. Normocephalic. EYES: Pupils equal round and reactive. Extraocular motions intact. No scleral icterus. No injection or drainage. ENT: Nose without bleeding, purulent drainage. Throat without erythema, tonsillar hypertrophy or exudate. Airway patent. NECK: Trachea midline. Non tender CARDIOVASCULAR: Regular rate but irregular rhythm without murmurs, gallops, or rubs. RESPIRATORY: Clear to auscultation. Breath sounds equal bilaterally. No wheezes, rales, or rhonchi. GASTROINTESTINAL: Abdomen soft, non-tender, nondistended. EXTREMITIES: Lower extremity edema to above his knee socks, socks removed, shallow anterior ulcers with clear fluid weeping. Distal extremities well perfused. BACK: Nontender without deformity or crepitance. No flank tenderness. NEURO: AOx3. Motor functions grossly nonfocal SKIN: No rash or erythema of visible areas Initial Vital Signs Initial Vital Signs: Vital Signs Temperature 98.3 F 02/11/24 16:58 Pulse Rate 65 02/11/24 16:58 Respiratory Rate 18 02/11/24 16:58 Blood Pressure 217/104 H 02/11/24 16:58 Pulse Oximetry 91 02/11/24 16:58 Oxygen Delivery Method Room Air 02/11/24 16:58 Course Orders Ordered: ED Orders 02/11/24 16:58 XR chest 1V Stat EKG-12 Lead Stat Measure peak expiratory flow ONCE RT Consult Eval and Treat NOW 02/11/24 17:16 Complete Blood Count AUTO DIFF Stat Comprehensive Metabolic Panel Stat Lactate (Lactic Acid) Stat NT-proBNP (BNP-Adult 18+) Stat Prothrombin Time INR Stat Troponin I Stat 02/11/24 18:42 Trop I [Troponin I] Stat Discontinued Medications Furosemide (Furosemide 40 Mg/4 Ml Vial) 40 mg IV NOW ONE Stop: 02/11/24 18:06 Last Admin: 02/11/24 18:24 Dose: 40 mg Documented By: DORI Furosemide (Furosemide 40 Mg/4 Ml Vial) 40 mg IV NOW ONE Stop: 02/11/24 20:20 Last Admin: 02/11/24 20:27 Dose: Not Given Documented By: SOCORRO Nitroglycerin (Nitroglycerin Oint 1 Inch/Gm Oint...G.) 2 inch TOP NOW ONE Stop: 02/11/24 18:06 Last Admin: 02/11/24 18:22 Dose: 2 inch Documented By: DORI Vital Signs Vital signs: Vital Signs - 8 hr 02/11/24 18:00 02/11/24 18:00 02/11/24 18:22 Pulse Rate 64 74 Respiratory Rate 28 H Blood Pressure 227/104 H 183/84 H Pulse Oximetry 94 02/11/24 18:23 02/11/24 18:23 02/11/24 18:30 Pulse Rate 66 70 Respiratory Rate 28 H 28 H Blood Pressure 183/84 H Pulse Oximetry 94 93 02/11/24 18:30 02/11/24 19:00 02/11/24 19:01 Pulse Rate 67 78 Respiratory Rate 26 H 27 H Blood Pressure 203/110 H Pulse Oximetry 93 02/11/24 19:01 02/11/24 19:30 02/11/24 19:30 Pulse Rate 73 Respiratory Rate 26 H Blood Pressure 199/114 H 207/102 H Pulse Oximetry 93 02/11/24 20:00 02/11/24 20:00 02/11/24 20:07 Pulse Rate 69 80 Respiratory Rate 27 H 30 H Blood Pressure 227/108 H Pulse Oximetry 93 93 02/11/24 20:07 Pulse Rate Respiratory Rate Blood Pressure 204/105 H Pulse Oximetry MDM - SOB/Dyspnea Lab Data Attestation: I reviewed the patient's lab results. 02/11/24 17:16 02/11/24 17:16 Labs: Lab Results 02/11/24 02/11/24 Range/Units 17:16 18:42 WBC 7.6 (4.5-11.0) X10^3/uL RBC 5.45 (4.5-5.9) X10^6/uL Hgb 17.1 (13.5-17.5) g/dL Hct 50.2 (41-53) % MCV 92.1 (80-100) fL MCH 31.4 (26-34) PG MCHC 34.1 (30-36) % RDW 13.8 (11.6-14.8) % Plt Count 250 (150-400) X10^3/uL Neut % (Auto) 62.7 (50-75) % Lymph % (Auto) 24.9 L (25-40) % [place] % (Auto) 7.3 (3-14) % Eos % (Auto) 4.5 H (2-4) % Baso % (Auto) 0.6 (0-2) % Neut # (Auto) 4800 (2847-5444) /uL Lymph # (Auto) 1900 (1835-4106) /uL [place] # (Auto) 600 (0-900) /uL Eos # (Auto) 300 (0-450) /uL Baso # (Auto) 0 (0-100) /uL PT 13.5 H (9.4-12.5) SECONDS INR 1.2 (0.9-1.3) Sodium 139 (137-145) mmol/L Potassium 3.9 (3.4-5.1) mmol/L Chloride 104 (98-107) mmol/L Carbon Dioxide 25 (22-32) mmol/L BUN 22 H (9-20) mg/dL Creatinine 1.29 H (0.66-1.25) mg/dL Estimated GFR 57 L (>60) mL/min BUN/Creatinine Ratio 17.1 (6-22) Glucose 179 H (80-110) mg/dL Lactate 1.9 (0.7-2.1) mmol/L Calcium 9.4 (8.4-10.2) mg/dL Total Bilirubin 1.1 (0.2-1.3) mg/dL AST 24 (17-59) IU/L ALT 19 (<50) IU/L Alkaline Phosphatase 190 H (38-126) U/L Troponin I 0.026 0.024 (0.01-0.034) ng/mL NT-Pro-B Natriuret Pep 4030 H (<450) pg/mL Total Protein 7.7 (6.3-8.2) g/dL Albumin 3.9 (3.5-5.0) g/dL Globulin 3.8 (1.7-4.1) g/dL Albumin/Globulin Ratio 1.0 (1.0-2.8) Imaging Data Chest x-ray: Radiologist's Impression: [place] [address] XRay Report Signed Patient: Lazarus Hanks MR#: [id number] : 1945 Acct:[id number] Age/Sex: 78 / M Date of Service: 02/11/24 Loc: Accession Number: [id number] Procedure: XR chest 1V Ordering Provider: Latrell Dumont D.O. PROCEDURE: XR CHEST 1V INDICATIONS: Shortness of breath TECHNIQUE: One view of the chest was acquired. COMPARISON: None. FINDINGS: Surgical changes and devices: None. Lungs and pleura: Prominent interstitial markings. No pleural effusions or pneumothorax. Mediastinum: Mediastinal contours appear normal. Heart size is enlarged. Bones and chest wall: No suspicious bony lesions. Overlying soft tissues appear unremarkable. IMPRESSION: Cardiomegaly and prominent interstitial markings raising concern for pulmonary edema/CHF. Recommend clinical correlation. Dictated by: Castro Barrientos M.D. on 02/11/2024 at 17:28 Approved by: Castro Barrientos M.D. on 02/11/2024 at 17:29 ECG Data Attestation: I personally reviewed and interpreted this ECG as follows: Interpretation: Atrial fibrillation with ventricular response rate 66, no obvious ST segment elevation or depression changes. QRS 92. QTC 482. MDM Narrative Medical decision making narrative: 78-year-old male Mandarin speaking male with history by daughter at bedside, history of CHF, AFib, Eliquis chronic anticoagulation, possible missed doses of medications, fluid overload lower extremity with some shallow weeping and edema to knees above his socks, shortness of breath, wheeze on exam. Screening chest x-ray suggestive of fluid overload. Labs at triage showed BNP 4000. EKG without obvious ischemic changes, shows AFib with controlled ventricular response rate, no obvious ischemia. Initial troponin negative. Records review, most recent echocardiogram report available in [facility] records, study date 11/09/2023. Showed normal left ventricle size, EF 55-60%, no significant change from prior study, [id number] aortic regurgitation, mild tricuspid regurgitation, no mention pericardial effusion or tamponade physiology. Interpreted by cardiology Dr Elias. Potassium adequate, IV Lasix, topical nitroglycerin. Currently he is not on oxygen, CHF seems currently compensated. We will attempt diuresis and blood pressure control measures. Patient has had 2100mL urine diuresis, dyspnea and edmea symptoms improved, feels much better. Repeat interval troponin also negative. He would like to go home. Home with his daughter. Encouraged to take his regular medications including his morning medications, perhaps with some kind of MediSet set device or directly observed medication strategy. Follow up advised with regular doctor in the next couple of days. Return precautions discussed. Discharge Plan Departure Patient Disposition: Home Clinical Impression: Dyspnea, Chronic anticoagulation, Congestive heart failure Activity Restrictions/Additional Instructions: History of congestive heart failure, history of atrial fibrillation, possible missed morning medications, fluid overload clinically and by chest x-ray and lab testing. IV Lasix was given with excellent response to diuresis, over 2 L of new urine output. Symptomatically improved. EKG and serial blood tests not suggestive of recent heart attack at this time. Continue taking your regular medications as prescribed. Recheck symptoms with your regular doctor in the next couple of days. Return to this/nearest emergency department for any change worsening symptoms or any concerns prior Prescriptions: No Action aspirin 81 MG tablet,delayed release (DR/EC) 81 mg PO QDAY Qty: 90 3RF (DME) Disabled Parking Permit See Rx Instructions .ROUTE .MEDSUPPLY Qty: 1 0RF Rx Instructions: Valid for 5 years fenofibrate micronized 134 mg capsule See Rx Instructions .ROUTE .COMPLEX Qty: 90 0RF Dose Instruction: take 1 capsule by mouth once daily Rx Instructions: take 1 capsule by mouth once daily dapagliflozin propanediol 10 mg tablet 10 mg PO DAILY Qty: 90 3RF Janumet 50-500 mg tablet See Rx Instructions .ROUTE .COMPLEX Qty: 180 3RF Dose Instruction: take 1 tablet by mouth twice a day Rx Instructions: take 1 tablet by mouth twice a day glimepiride 4 mg tablet 8 mg PO QDAY Qty: 180 3RF lisinopril 40 mg tablet 40 mg PO QPM Qty: 90 3RF atenolol 50 mg tablet 50 mg PO DAILY Qty: 90 0RF Eliquis 5 mg tablet 5 mg PO BID Qty: 180 0RF atorvastatin 40 mg tablet 40 mg PO BEDTIME amlodipine 10 mg tablet 5 mg PO DAILY milk thistle 150 mg capsule 150 mg PO DAILY Patient Comments: Patient taking 1 gelcap of an OTC milk thistle supplement unknown dose triamcinolone acetonide 0.1 % cream 1 applic topical BID PRN (Reason: rash) Qty: 30 11RF Rx Instructions: apply to leg or other affected areas. spironolactone 25 mg tablet 25 mg PO DAILY Referrals: Erika Sandoval DO [Primary Care Provider] - Stand Alone Forms: Patient Portal/API
[2024-02-11] MEDS: NITROGLYCERIN OINT 1 INCH/GM OINT...G. 2 INCH TOP (18:22)
[2024-02-11] MEDS: FUROSEMIDE 40 MG/4 ML VIAL IV (18:24)
[2024-02-11 19:12] LABS: Troponin I 0.024 ng/mL (0.01-0.034)
== END 2024-02-11 20:42 | disposition home or self-care (01) ==
PROVIDERS: Student in an Organized Health Care Education/Training Program; Emergency Provider Emergency Medicine; PCP Family Medicine
DX: R06.00 Dyspnea, unspecified (principal); I50.9 Heart failure, unspecified; I10 Essential (primary) hypertension; I48.20 Chronic atrial fibrillation, unspecified; Z79.01 Long term (current) use of anticoagulants
CPT/HCPCS: 36415; 71045; 80053; 83605; 83880; 84484; 85025; 85610; 93005; 93010; 96374; 99284; J1940

== ENCOUNTER → 2024-03-21 09:42 | Outpatient (CLI) | payer MEDICARE, MEDICAID, SELFPAY ==
[2024-03-21 10:43] LABS: Hemoglobin A1C% w Est Avg Glu 7.1 % (4.0-6.0)
[2024-03-21 10:54] LABS: BUN Creatinine Ratio 17.2 (6-22); Blood Urea Nitrogen 26 mg/dL (9-20); Calcium 9.4 mg/dL (8.4-10.2); Carbon Dioxide 27 mmol/L (22-32); Chloride 104 mmol/L (98-107); Estimated Glomerular Filt Rate 48 mL/min (>60); Glucose 176 mg/dL (80-110); HEMOLYSIS < 15 (0-50); Potassium 4.3 mmol/L (3.4-5.1); Sodium 137 mmol/L (137-145)
[2024-03-21 22:56] LABS: Influenza A - CEPHEID Flu A NEGATIVE (NEGATIVE); Influenza B - CEPHEID Flu B NEGATIVE (NEGATIVE); Respiratory Syncytial Virus Negative (Negative)
[2024-03-21 23:48] LABS: COVID-19 CEPHEID 4-PLEX PCR Negative (Negative)
== END ==
PROVIDERS: PCP Family Medicine; Referring Provider Family Medicine; Visit Provider Family Medicine
DX: E11.59 Type 2 diabetes mellitus with other circulatory complications (principal); U07.1 COVID-19; N18.30 Chronic kidney disease, stage 3 unspecified; I48.20 Chronic atrial fibrillation, unspecified; E11.22 Type 2 diabetes mellitus with diabetic chronic kidney disease; J02.9 Acute pharyngitis, unspecified
CPT/HCPCS: 0241U; 36415; 80048; 83036

== ENCOUNTER → 2024-04-28 14:45 | Outpatient (CLI) | payer MEDICARE, MEDICAID, SELFPAY ==
--- NOTE | 2024-04-28 14:47 | DI.US.S_ITS ---
PROCEDURE: US ARTERIAL DUPLEX LE BI INDICATIONS: essential hypertension TECHNIQUE: Color and pulse Doppler interrogation was performed of both lower extremity arterial systems, with image documentation. COMPARISON: None. FINDINGS: Right lower extremity: Common femoral artery: 96 cm/sec, with triphasic flow. Deep femoral artery: 110 cm/sec, with triphasic flow. Proximal superficial femoral artery: 98 cm/sec, with triphasic flow. Mid superficial femoral artery: 88 cm/sec, with triphasic flow. Distal superficial femoral artery: 98 cm/sec, with triphasic flow. Popliteal artery: 63 cm/sec, with triphasic flow. Posterior tibial artery: 54 cm/sec, with triphasic flow. Anterior tibial artery/dorsalis pedis: 44 cm/sec, with biphasic flow. Quiroz-scale imaging description: Plaque without stenosis. Normal waveforms. Left lower extremity: Common femoral artery: 98 cm/sec, with triphasic flow. Deep femoral artery: 88 cm/sec, with triphasic flow. Proximal superficial femoral artery: 93 cm/sec, with triphasic flow. Mid superficial femoral artery: 99 cm/sec, with triphasic flow. Distal superficial femoral artery: 89 cm/sec, with triphasic flow. Popliteal artery: 67 cm/sec, with triphasic flow. Posterior tibial artery: 69 cm/sec, with triphasic flow. Anterior tibial artery/dorsalis pedis: 30 cm/sec, with biphasic flow. Quiroz-scale imaging description: Plaque without stenosis. Normal waveforms. IMPRESSION: No evidence of hemodynamically significant stenosis in the bilateral lower extremity arterial systems. Normal waveforms. Dictated by: Pb Figueroa M.D. on 04/28/2024 at 20:57 Approved by: Pb Figueroa M.D. on 04/28/2024 at 20:59
== END ==
LOC: US 14:46
PROVIDERS: PCP Family Medicine; Referring Provider Internal Medicine Cardiovascular Disease; Visit Provider Internal Medicine Cardiovascular Disease
DX: I10 Essential (primary) hypertension (principal)
CPT/HCPCS: 93925

== ENCOUNTER → 2024-05-09 07:14 | Outpatient (CLI) | payer MEDICARE, MEDICAID, SELFPAY ==
--- NOTE | 2024-05-09 07:16 | DI.US.S_ITS ---
PROCEDURE: US RENAL DOPPLER INDICATIONS: ESSENTIAL HYPERTENSION TECHNIQUE: Real time scanning was performed of both kidneys, followed by Color and pulsed Doppler interrogation of the renal vessels. COMPARISON: None. FINDINGS: Aortic peak systolic velocity: 43 cm/s. Right side: Quiroz-scale imaging: Kidney is 9.8 cm long. No hydronephrosis. No nephrolithiasis. Renal cortex is normal in echogenicity. No suspicious solid renal masses. Proximal renal artery peak systolic velocity: 57 cm/s. Mid renal artery peak systolic velocity: 54 cm/s. Distal renal artery peak systolic velocity: 52 cm/s. Renal vein: Patent, without thrombus. Peak renal/aortic ratio (RAR): 1.3 Left side: Quiroz-scale imaging: Kidney is 10.7 cm long. No hydronephrosis. No nephrolithiasis. Renal cortex is normal in echogenicity. No suspicious solid renal masses. Proximal renal artery peak systolic velocity: 60 cm/s. Mid-renal artery peak systolic velocity: 69 cm/s. Distal renal artery peak systolic velocity: 88 cm/s. Renal vein: Patent, without thrombus. Peak renal/aortic ratio (RAR): 2.0 IMPRESSION: No hemodynamically significant renal artery stenosis. Dictated by: Marcelo Morse M.D. on 05/09/2024 at 9:27 Approved by: Marcelo Morse M.D. on 05/09/2024 at 9:44
== END ==
PROVIDERS: PCP Family Medicine; Referring Provider Internal Medicine Cardiovascular Disease; Visit Provider Internal Medicine Cardiovascular Disease
DX: I10 Essential (primary) hypertension (principal)
CPT/HCPCS: 93975

== ENCOUNTER → 2024-07-18 11:43 | Outpatient (CLI) | payer MEDICARE, MEDICAID, SELFPAY ==
[2024-07-18 13:09] LABS: Blood Urea Nitrogen 38 mg/dL (9-20); Calcium 9.2 mg/dL (8.4-10.2); Carbon Dioxide 21 mmol/L (22-32); Chloride 106 mmol/L (98-107); Estimated Glomerular Filt Rate 36 mL/min (>60); Glucose 104 mg/dL (80-110); HEMOLYSIS < 15 (0-50); Potassium 4.5 mmol/L (3.4-5.1); Sodium 138 mmol/L (137-145)
== END ==
LOC: LAB 11:44
PROVIDERS: PCP Family Medicine; Referring Provider Internal Medicine Cardiovascular Disease; Visit Provider Internal Medicine Cardiovascular Disease
DX: I10 Essential (primary) hypertension (principal)
CPT/HCPCS: 36415; 80048

== ENCOUNTER → 2024-09-09 14:59 | Outpatient (CLI) | payer MEDICARE, MEDICAID, SELFPAY ==
[2024-09-09 16:03] LABS: BUN Creatinine Ratio 20.1 (6-22); Blood Urea Nitrogen 31 mg/dL (9-20); Calcium 9.1 mg/dL (8.4-10.2); Carbon Dioxide 26 mmol/L (22-32); Chloride 105 mmol/L (98-107); Estimated Glomerular Filt Rate 46 mL/min (>60); Glucose 97 mg/dL (70-99); HEMOLYSIS 24 (0-50); Potassium 4.1 mmol/L (3.4-5.1); Sodium 140 mmol/L (137-145)
[2024-09-09 16:14] LABS: Hemoglobin A1C% w Est Avg Glu 5.7 % (4.0-6.0)
== END ==
PROVIDERS: PCP Family Medicine; Referring Provider Family Medicine; Visit Provider Family Medicine
DX: E11.59 Type 2 diabetes mellitus with other circulatory complications (principal); N18.30 Chronic kidney disease, stage 3 unspecified
CPT/HCPCS: 80048; 83036

== ENCOUNTER → 2024-11-28 10:05 | Outpatient (CLI) | payer MEDICARE, MEDICAID, SELFPAY ==
[2024-11-28 10:54] LABS: Hemoglobin A1C% w Est Avg Glu 5.9 % (4.0-6.0)
[2024-11-28 11:14] LABS: Blood Urea Nitrogen 29 mg/dL (9-20); Calcium 9.6 mg/dL (8.4-10.2); Carbon Dioxide 27 mmol/L (22-32); Chloride 103 mmol/L (98-107); Estimated Glomerular Filt Rate 35 mL/min (>60); Glucose 119 mg/dL (70-99); HEMOLYSIS < 15 (0-50); Potassium 5.3 mmol/L (3.4-5.1); Sodium 140 mmol/L (137-145)
[2024-11-28 11:43] LABS: TSH w/ Reflex to FT4 1.81 uIU/mL (0.47-4.68)
== END ==
PROVIDERS: PCP Family Medicine; Referring Provider Family Medicine; Visit Provider Family Medicine
DX: E11.59 Type 2 diabetes mellitus with other circulatory complications (principal); N18.30 Chronic kidney disease, stage 3 unspecified; R53.82 Chronic fatigue, unspecified
CPT/HCPCS: 36415; 80048; 83036; 84443

== ENCOUNTER → 2025-03-13 09:32 | Outpatient (CLI) | payer MEDICARE, MEDICAID, SELFPAY ==
[2025-03-13 11:58] LABS: Alanine Aminotransferase 19 IU/L (<50); Albumin 3.9 g/dL (3.5-5.0); Albumin Globulin Ratio 1.1 (1.0-2.8); Alkaline Phosphatase 159 U/L (38-126); Blood Urea Nitrogen 47 mg/dL (9-20); Calcium 9.2 mg/dL (8.4-10.2); Carbon Dioxide 25 mmol/L (22-32); Chloride 101 mmol/L (98-107); Cholesterol 91 mg/dL (140-199); Estimated Glomerular Filt Rate 36 mL/min (>60); Globulin 3.5 g/dL (1.7-4.1); Glucose 172 mg/dL (70-99); HDL Cholesterol 32 mg/dL (40-60); HEMOLYSIS 21 (0-50); Potassium 4.6 mmol/L (3.4-5.1); Sodium 137 mmol/L (137-145); Total Protein 7.4 g/dL (6.3-8.2); Triglycerides 235 mg/dL (35-150); VLDL Cholesterol Calculated 47 mg/dL (2-30)
[2025-03-13 12:11] LABS: Hemoglobin A1C% w Est Avg Glu 6.0 % (4.0-6.0)
== END ==
PROVIDERS: PCP Family Medicine; Referring Provider Family Medicine; Visit Provider Family Medicine
DX: E11.59 Type 2 diabetes mellitus with other circulatory complications (principal); E11.29 Type 2 diabetes mellitus with other diabetic kidney complication; R80.9 Proteinuria, unspecified; N18.30 Chronic kidney disease, stage 3 unspecified; R53.82 Chronic fatigue, unspecified; R53.81 Other malaise
CPT/HCPCS: 36415; 80053; 80061; 83036

== ENCOUNTER → 2025-04-17 10:53 | Outpatient (CLI) | payer MEDICARE, MEDICAID, SELFPAY ==
[2025-04-17 11:28] LABS: Hematocrit 53.9 % (41-53); Hemoglobin 18.4 g/dL (13.5-17.5)
[2025-04-17 11:46] LABS: Blood Urea Nitrogen 42 mg/dL (9-20); Calcium 9.4 mg/dL (8.4-10.2); Carbon Dioxide 26 mmol/L (22-32); Chloride 103 mmol/L (98-107); Estimated Glomerular Filt Rate 42 mL/min (>60); Glucose 136 mg/dL (70-99); HEMOLYSIS 17 (0-50); Potassium 4.5 mmol/L (3.4-5.1); Sodium 139 mmol/L (137-145)
[2025-04-17 14:18] LABS: Protein (Total) Urine Random 26 mg/dL (0-12)
[2025-04-17 14:24] LABS: Microalbumi Creatinin Ratio Ur 177.0 ug/mg CR (<30)
== END ==
PROVIDERS: PCP Family Medicine; Referring Provider Internal Medicine Nephrology; Visit Provider Internal Medicine Nephrology
DX: E11.22 Type 2 diabetes mellitus with diabetic chronic kidney disease (principal); I12.9 Hypertensive chronic kidney disease with stage 1 through stage 4 chronic kidney disease, or unspecified chronic kidney disease; N18.31 Chronic kidney disease, stage 3a; R80.9 Proteinuria, unspecified
CPT/HCPCS: 36415; 80048; 82043; 82570; 84156; 85014; 85018